=== PATIENT | male | born 1955 | race African-American/Black ===

== ENCOUNTER 2019-02-10 11:54 | Observation (INO) ==
[2019-02-10 13:39] LABS: Apearance,Urine CLEAR (Clear); Bacteria,Urine Occasional /HPF (Few); Bilirubin,Urine Negative (Negative); Blood, Urine Negative (Negative); Glucose,Urine (UA) Negative (Negative); Ketones,Urine Negative (Negative); Mucus,Urine Many /LPF (Occasional); Nitrite,Urine Negative (Negative); Protein,Urine Negative; RBC,Urine 3 /HPF (0-4); Squamous Epithelial Cell,Urine Occasional /HPF (0-10); Urine Color Yellow (Yellow); Urine Specific Gravity 1.026 (1.001-1.035); WBC,Urine 2 /HPF (0-6)
[2019-02-10 14:31] LABS: Barbiturates Screen,Urine Negative (Negative); Benzodiazepines Screen,Urine Negative (Negative); Cannabinoid Screen,Urine Negative (Negative); Opiate Screen,Urine Negative (Negative); Phencyclidine Screen,Urine Negative (Negative)
[2019-02-10 14:45] LABS: Basophils % 0.2 % (0.0-0.8); Eosinophils # 0.1 10*3/uL (0.0-0.87); Eosinophils % 0.7 % (0.00-10.9); Hematocrit 47.4 VOL% (42.0-52.0); Hemoglobin 16.4 GM/DL (14.0-18.0); Immature Granulocytes % 0.6 %; Immature Granulocytes Absolute 0.06 #; Lymphocytes # 2.6 10*3/uL (1.4-4.0); Lymphocytes % 25.8 % (21.2-54.2); Mean Corpuscular HGB Conc 34.6 GM/DL (32-36); Mean Corpuscular Hemoglobin 34 PG (27-34); Mean Corpuscular Volume 97.3 FL (87-102); Mean Platelet Volume 10.2 FL (9.6-12.0); Monocytes # 0.9 10*3/uL (0.11-0.8); Monocytes % 8.6 % (1.7-12.7); Neutrophils # 6.4 10*3/uL (1.4-7.4); Neutrophils % 64.1 % (38.7-73.9); Platelet Count 285 T/CUMM (130-400); Red Blood Count 4.87 MC/CUMM (3.8-5.5); Red Cell Distribution Width 12.6 % (9.3-17.3)
[2019-02-10 15:07] LABS: Albumin 3.6 G/DL (3.4-5.0); Bilirubin,Total 0.7 MG/DL (0.2-1.0); Calcium 8.9 MG/DL (8.5-10.1); Osmolality,Calculated 274.8 MOS/KG (273-304); Potassium 4.4 MMOL/L (3.5-5.1); Total Protein 8.3 G/DL (6.4-8.3)
[2019-02-10] MEDS ORDERED: SODIUM CHLORIDE 0.9% 1,000 ML IV STA (15:29)
[2019-02-10] MEDS ORDERED: cloNIDine 0.1 MG TABLET PO PRN (16:57)
[2019-02-10] MEDS ORDERED: ONDANSETRON 4 MG/2 ML VIAL IV PRN (17:05)
[2019-02-10] MEDS ORDERED: LABETALOL 20 MG/4 ML SYRINGE IV PRN (17:08)
[2019-02-10 17:30] LABS: Risk Ratio 2.98; VLDL CHOLESTEROL 13.8 MG/DL
[2019-02-10] MEDS: SODIUM CHLORIDE 0.9% 1,000 ML IV SCH (18:29)
[2019-02-10] MEDS: ACETAMINOPHEN 500 MG TABLET PO SCH (18:29)
[2019-02-10] MEDS ORDERED: ROSUVASTATIN 20 MG TABLET PO SCH (21:00)
[2019-02-10] MEDS ORDERED: ENOXAPARIN 40 MG/0.4 ML SYRINGE SUBCUT SCH (21:00)
[2019-02-10] MEDS: CARVEDILOL 12.5 MG TABLET PO SCH (22:16)
[2019-02-11 03:42] LABS: Basophils % 0.1 % (0.0-0.8); Eosinophils # 0.2 10*3/uL (0.0-0.87); Eosinophils % 2.5 % (0.00-10.9); Hematocrit 40.4 VOL% (42.0-52.0); Hemoglobin 13.8 GM/DL (14.0-18.0); Immature Granulocytes % 0.2 %; Immature Granulocytes Absolute 0.02 #; Lymphocytes # 3.1 10*3/uL (1.4-4.0); Lymphocytes % 37.9 % (21.2-54.2); Mean Corpuscular HGB Conc 34.2 GM/DL (32-36); Mean Corpuscular Hemoglobin 33 PG (27-34); Mean Corpuscular Volume 97.6 FL (87-102); Mean Platelet Volume 10.4 FL (9.6-12.0); Monocytes # 0.9 10*3/uL (0.11-0.8); Neutrophils % 48.3 % (38.7-73.9); Platelet Count 218 T/CUMM (130-400); Red Blood Count 4.14 MC/CUMM (3.8-5.5); Red Cell Distribution Width 12.7 % (9.3-17.3); White Blood Count 8.3 T/CUMM (4-12)
[2019-02-11 03:57] LABS: Calcium 8.4 MG/DL (8.5-10.1); Osmolality,Calculated 278.5 MOS/KG (273-304); Potassium 4.4 MMOL/L (3.5-5.1)
[2019-02-11] MEDS: ACETAMINOPHEN 500 MG TABLET PO SCH (08:36)
[2019-02-11] MEDS: CARVEDILOL 12.5 MG TABLET PO SCH (08:36)
[2019-02-11] MEDS ORDERED: VENLAFAXINE XR 75 MG CAPSULE PO SCH (09:00)
[2019-02-11] MEDS ORDERED: ASPIRIN EC 81 MG TABLET PO SCH (09:00)
[2019-02-11] MEDS ORDERED: CLOPIDOGREL 75 MG TABLET PO SCH (09:00)
[2019-02-11 12:05] VITALS: BP 96/68
[2019-02-11] MEDS: SODIUM CHLORIDE 0.9% 1,000 ML IV SCH (13:06)
== END 2019-02-11 13:40 ==
LOC: N.ED 11:54 → INTOOBSV 17:05 → N.EDINP 17:05 → N.2E 18:10
PROVIDERS: ADMIT Hospitalist; ATTEND Hospitalist

== ENCOUNTER 2020-12-12 19:22 | Inpatient (IN) ==
[2020-12-12 20:01] LABS: Albumin 3.3 G/DL (3.4-5.0); Calcium 9.5 MG/DL (8.5-10.1); Osmolality,Calculated 278.8 MOS/KG (273-304); Potassium 4.3 MMOL/L (3.5-5.1); Total Protein 8.9 G/DL (6.4-8.3)
[2020-12-12] MEDS ORDERED: LEVOFLOXACIN INJ 500 MG in PREMIX 1 EACH IV STA (20:18)
[2020-12-12] MEDS ORDERED: SODIUM CHLORIDE 0.9% 1,000 ML IV STA (20:18)
[2020-12-12 20:31] LABS: Basophils % 0.2 % (0.0-0.8); Hematocrit 43.9 VOL% (42.0-52.0); Hemoglobin 15.2 GM/DL (14.0-18.0); Immature Granulocytes % 0.6 %; Immature Granulocytes Absolute 0.08 #; Lymphocytes % 7.4 % (21.2-54.2); Mean Corpuscular HGB Conc 34.6 GM/DL (32-36); Mean Corpuscular Volume 100.5 FL (87-102); Mean Platelet Volume 10.5 FL (9.6-12.0); Monocytes % 5.3 % (1.7-12.7); Neutrophils % 86.5 % (38.7-73.9); Platelet Count 288 T/CUMM (130-400); Red Blood Count 4.37 MC/CUMM (3.8-5.5); Red Cell Distribution Width 13.4 % (9.3-17.3)
[2020-12-12 20:56] LABS: Bilirubin,Urine Negative (Negative); Blood, Urine Negative (Negative); Glucose,Urine (UA) Negative (Negative); Ketones,Urine Negative (Negative); Mucus,Urine Few /LPF (Occasional); Nitrite,Urine Negative (Negative); Protein,Urine 30 MG/DL; RBC,Urine 3 /HPF (0-4); Urine Appearance CLEAR (Clear); Urine Color Amber (Yellow); Urine Specific Gravity 1.027 (1.001-1.035); WBC,Urine 4 /HPF (0-6)
[2020-12-12] MEDS ORDERED: GLUCAGON 1 MG VIAL IM PRN (22:05)
[2020-12-12] MEDS ORDERED: diphenhydrAMINE CAP 25 MG CAPSULE PO PRN (22:05)
[2020-12-12] MEDS ORDERED: NICOTINE 21 MG/24 HR PATCH TRANSDERM PRN (22:05)
[2020-12-12] MEDS ORDERED: hydrALAZINE 20 MG/1 ML VIAL IV PRN (22:05)
[2020-12-12] MEDS ORDERED: MORPHINE 4 MG/1 ML VIAL IV PRN (22:05)
[2020-12-12] MEDS ORDERED: DEXTROSE 50% 25 GM/50 ML VIAL IV PRN (22:05)
[2020-12-12] MEDS ORDERED: ONDANSETRON 4 MG/2 ML VIAL IV PRN (22:05)
[2020-12-12] MEDS ORDERED: ACETAMINOPHEN 325 MG TABLET PEG PRN (22:05)
[2020-12-12 22:49] LABS: ABG Base Excess -2.9 MMOL/L (-2.5-2.5); ABG Oxygen Saturation 95.5 % (95-100); ABG PCO2 30.2 MM HG (35-48); ABG PH 7.435 (7.35-7.45); ABG PO2 74.6 MM HG (80-95); ABG TCO2 17.8 MMOL/L (23-27); Allen Test Positive; Pt O2 Delivery Device Simple Mask
[2020-12-13] MEDS: DEXTROSE 5% NACL 0.45% 1,000 ML IV SCH ×2 (00:02→18:04)
[2020-12-13] MEDS: ALBUTEROL/IPRATROPIUM 3 ML NEB RESP TX SCH ×4 (01:03→21:04)
[2020-12-13 06:27] LABS: Basophils % 0.1 % (0.0-0.8); Hematocrit 38.4 VOL% (42.0-52.0); Hemoglobin 12.8 GM/DL (14.0-18.0); Immature Granulocytes % 0.7 %; Immature Granulocytes Absolute 0.09 #; Lymphocytes # 1.2 10*3/uL (1.4-4.0); Lymphocytes % 9.6 % (21.2-54.2); Mean Corpuscular HGB Conc 33.3 GM/DL (32-36); Mean Corpuscular Volume 103.8 FL (87-102); Mean Platelet Volume 9.9 FL (9.6-12.0); Monocytes % 4.5 % (1.7-12.7); Neutrophils % 85.1 % (38.7-73.9); Platelet Count 250 T/CUMM (130-400); Red Cell Distribution Width 13.4 % (9.3-17.3); White Blood Count 12.3 T/CUMM (4-12)
[2020-12-13 06:43] LABS: Osmolality,Calculated 282.5 MOS/KG (273-304); Potassium 3.7 MMOL/L (3.5-5.1)
[2020-12-13 07:05] LABS: Band Neutrophils 12 % (0-10); Lymphocytes 12 % (20-55); Metamyelocytes 3 %; Myelocytes 1 %; Segmented Neutrophils 67 % (50-85); Total Cells Counted 100
[2020-12-13 07:06] LABS: Hypochromasia 1+; Platelet Estimate Normal
[2020-12-13 09:19] LABS: ABG Base Excess -0.2 MMOL/L (-2.5-2.5); ABG HCO3 24.3 MMOL/L (20-26); ABG Oxygen Saturation 97.6 % (95-100); ABG PCO2 32.9 MM HG (35-48); ABG PH 7.453 (7.35-7.45); ABG PO2 87.5 MM HG (80-95); ABG TCO2 20.2 MMOL/L (23-27); Allen Test Positive; Pt O2 Delivery Device Simple Mask
[2020-12-13] MEDS: ENOXAPARIN 40 MG/0.4 ML SYRINGE SUBCUT SCH (09:51)
[2020-12-13] MEDS: PANTOPRAZOLE 40 MG TABLET PO SCH (13:37)
[2020-12-13] MEDS: guaiFENesin/DM ER 600-30 MG TABLET PO SCH ×2 (13:37→22:22)
[2020-12-13] MEDS: LEVOFLOXACIN INJ 750 MG in PREMIX 1 EACH IV SCH (22:24)
[2020-12-14] MEDS: ALBUTEROL/IPRATROPIUM 3 ML NEB RESP TX SCH ×4 (01:01→19:33)
[2020-12-14] MEDS ORDERED: SODIUM CHLORIDE 0.9% 500 ML IV SCH (09:30)
[2020-12-14] MEDS: ENOXAPARIN 40 MG/0.4 ML SYRINGE SUBCUT SCH (10:17)
[2020-12-14] MEDS: DEXTROSE 5% NACL 0.45% 1,000 ML IV SCH ×2 (10:21→22:27)
[2020-12-14] MEDS: guaiFENesin/DM ER 600-30 MG TABLET PO SCH ×2 (12:50→22:29)
[2020-12-14] MEDS: PANTOPRAZOLE 40 MG TABLET PO SCH (12:50)
[2020-12-14] MEDS: LEVOFLOXACIN INJ 750 MG in PREMIX 1 EACH IV SCH (22:28)
[2020-12-15] MEDS: ALBUTEROL/IPRATROPIUM 3 ML NEB RESP TX SCH ×3 (02:19→13:17)
[2020-12-15 06:15] LABS: Eosinophils % 0.2 % (0.00-10.9); Hematocrit 34.4 VOL% (42.0-52.0); Hemoglobin 11.6 GM/DL (14.0-18.0); Immature Granulocytes % 0.5 %; Immature Granulocytes Absolute 0.03 #; Lymphocytes % 17.8 % (21.2-54.2); Mean Corpuscular HGB Conc 33.7 GM/DL (32-36); Mean Corpuscular Volume 102.4 FL (87-102); Mean Platelet Volume 9.7 FL (9.6-12.0); Monocytes % 4.9 % (1.7-12.7); Neutrophils % 76.6 % (38.7-73.9); Platelet Count 231 T/CUMM (130-400); Red Blood Count 3.36 MC/CUMM (3.8-5.5); Red Cell Distribution Width 13.2 % (9.3-17.3); White Blood Count 5.5 T/CUMM (4-12)
[2020-12-15 06:40] LABS: Calcium 9.1 MG/DL (8.5-10.1); Osmolality,Calculated 282.3 MOS/KG (273-304); Potassium 3.3 MMOL/L (3.5-5.1)
[2020-12-15] MEDS: ENOXAPARIN 40 MG/0.4 ML SYRINGE SUBCUT SCH (08:11)
[2020-12-15] MEDS: PANTOPRAZOLE 40 MG TABLET PO SCH (08:14)
[2020-12-15] MEDS: guaiFENesin/DM ER 600-30 MG TABLET PO SCH (08:14)
[2020-12-15] MEDS ORDERED: POTASSIUM CHLORIDE 20 MEQ/15 ML UDCUP PER TUBE PRN (11:24)
[2020-12-15 13:39] VITALS: BP 142/90
[2020-12-15] MEDS: DEXTROSE 5% NACL 0.45% 1,000 ML IV SCH (13:49)
== END 2020-12-15 16:05 | DRG 137 ==
LOC: EDUNIT# → EDBD → N.ED 19:22 → SUATTDRO 22:50 → N.EDINP 22:50 → N.3E 22:51
PROVIDERS: ADMIT Internal Medicine; ATTEND Internal Medicine

== ENCOUNTER 2020-12-24 22:40 | Inpatient (IN) ==
[2020-12-24] MEDS ORDERED: ETOMIDATE 20 MG/10 ML VIAL IV ONE (23:10)
[2020-12-24] MEDS ORDERED: VECURONIUM 10 MG VIAL IV ONE (23:10)
[2020-12-24] MEDS ORDERED: methylPREDNISolone SOD SUC 125 MG/2 ML VIAL IV STA (23:18)
[2020-12-24] MEDS ORDERED: PANTOPRAZOLE 40 MG VIAL IV STA (23:18)
[2020-12-24] MEDS ORDERED: SODIUM CHLORIDE 0.9% 1,000 ML IV STA (23:18)
[2020-12-24] MEDS ORDERED: VANCOMYCIN INJ 1,000 MG in SODIUM CHLORIDE 0.9% 250 ML IV STA ×2 (23:18→23:21)
[2020-12-24] MEDS ORDERED: ONDANSETRON 4 MG/2 ML VIAL IV STA (23:18)
[2020-12-24 23:32] LABS: Basophils % 0.2 % (0.0-0.8); Hematocrit 45.5 VOL% (42.0-52.0); Hemoglobin 14.4 GM/DL (14.0-18.0); Immature Granulocytes % 0.4 %; Immature Granulocytes Absolute 0.07 #; Lymphocytes # 2.2 10*3/uL (1.4-4.0); Lymphocytes % 13.2 % (21.2-54.2); Mean Corpuscular HGB Conc 31.6 GM/DL (32-36); Mean Corpuscular Volume 108.9 FL (87-102); Mean Platelet Volume 10.8 FL (9.6-12.0); Monocytes % 3.3 % (1.7-12.7); Neutrophils % 82.9 % (38.7-73.9); Platelet Count 395 T/CUMM (130-400); Red Blood Count 4.18 MC/CUMM (3.8-5.5); Red Cell Distribution Width 13.8 % (9.3-17.3); White Blood Count 16.5 T/CUMM (4-12)
[2020-12-25 00:24] LABS: INR 1.3; PT Patient Result 13.6 SECS (9.8-11.9)
[2020-12-25 00:37] LABS: ABG Base Excess -9.3 MMOL/L (-2.5-2.5); ABG HCO3 17.1 MMOL/L (20-26); ABG Oxygen Saturation 98.4 % (95-100)
[2020-12-25 00:40] LABS: ABG PH 7.057 (7.35-7.45)
[2020-12-25 00:41] LABS: ABG PCO2 87.8 MM HG (35-48)
[2020-12-25 00:59] LABS: Potassium 4.9 MMOL/L (3.5-5.1); Sodium 138 MMOL/L (136-145)
[2020-12-25 01:01] LABS: Calcium 9.5 MG/DL (8.5-10.1)
[2020-12-25 01:03] LABS: Albumin 2.8 G/DL (3.4-5.0); Blood Urea Nitrogen 41 MG/DL (7-18); Carbon Dioxide 23 MMOL/L (21-32); Glucose 107 MG/DL (74-106); Osmolality,Calculated 284.7 MOS/KG (273-304)
[2020-12-25 01:06] LABS: Alanine Aminotransferase 89 U/L (16-61); Aspartate Amino Transferase 47 U/L (0-37); Estimated Glom Filtration Rate 66 ML/MIN
[2020-12-25 01:09] LABS: Alkaline Phosphatase 216 U/L (45-117)
[2020-12-25 01:10] LABS: Troponin I < 0.015 NG/ML (0.00-0.045)
[2020-12-25 01:55] LABS: Blood, Urine Moderate mg/dL (Negative); Glucose,Urine (UA) Negative (Negative); Ketones,Urine Negative (Negative); Mucus,Urine Few /LPF (Occasional); Nitrite,Urine Negative (Negative); Protein,Urine 100 MG/DL; RBC,Urine 11 /HPF (0-4); Squamous Epithelial Cell,Urine Occasional /HPF (0-10); Urine Appearance CLOUDY (Clear); Urine Color Amber (Yellow); Urine Specific Gravity 1.028 (1.001-1.035); WBC,Urine 2 /HPF (0-6)
[2020-12-25 01:57] LABS: Bilirubin,Urine Small mg/dL (Negative)
[2020-12-25] MEDS ORDERED: METOPROLOL TARTRATE 5 MG/5 ML VIAL IV STA (02:10)
[2020-12-25] MEDS ORDERED: DEXTROSE 50% 25 GM/50 ML VIAL IV PRN (02:37)
[2020-12-25] MEDS ORDERED: ONDANSETRON 4 MG/2 ML VIAL IV PRN (02:37)
[2020-12-25] MEDS ORDERED: hydrALAZINE 20 MG/1 ML VIAL IV PRN (02:37)
[2020-12-25] MEDS ORDERED: GLUCAGON 1 MG VIAL IM PRN (02:37)
[2020-12-25 02:48] LABS: ABG Base Excess -7.3 MMOL/L (-2.5-2.5); ABG HCO3 18.6 MMOL/L (20-26); ABG Oxygen Saturation 98.4 % (95-100); ABG PCO2 48.3 MM HG (35-48); ABG PH 7.237 (7.35-7.45); ABG TCO2 18.3 MMOL/L (23-27)
[2020-12-25] MEDS: LEVOFLOXACIN INJ 750 MG in PREMIX 1 EACH IV SCH (03:50)
[2020-12-25] MEDS: SODIUM CHLORIDE 0.9% 1,000 ML IV SCH ×3 (04:35→23:10)
[2020-12-25 05:34] LABS: Basophils % 0.2 % (0.0-0.8); Hematocrit 39.5 VOL% (42.0-52.0); Hemoglobin 12.9 GM/DL (14.0-18.0); Immature Granulocytes % 0.4 %; Immature Granulocytes Absolute 0.05 #; Lymphocytes # 0.5 10*3/uL (1.4-4.0); Lymphocytes % 4.3 % (21.2-54.2); Mean Corpuscular HGB Conc 32.7 GM/DL (32-36); Mean Corpuscular Volume 107.3 FL (87-102); Mean Platelet Volume 10.5 FL (9.6-12.0); Monocytes % 3.9 % (1.7-12.7); Neutrophils % 91.2 % (38.7-73.9); Platelet Count 350 T/CUMM (130-400); Red Blood Count 3.68 MC/CUMM (3.8-5.5); Red Cell Distribution Width 13.6 % (9.3-17.3); White Blood Count 12.2 T/CUMM (4-12)
[2020-12-25 05:44] LABS: Calcium 8.6 MG/DL (8.5-10.1); Osmolality,Calculated 287.5 MOS/KG (273-304)
[2020-12-25 06:04] LABS: Band Neutrophils 9 % (0-10); Lymphocytes 5 % (20-55); Platelet Estimate Adequate; Segmented Neutrophils 84 % (50-85); Total Cells Counted 100
[2020-12-25] MEDS: ALBUTEROL/IPRATROPIUM 3 ML NEB RESP TX SCH ×3 (07:30→19:07)
[2020-12-25] MEDS: PANTOPRAZOLE 40 MG VIAL IV SCH (09:33)
[2020-12-25] MEDS: ENOXAPARIN 40 MG/0.4 ML SYRINGE SUBCUT SCH (09:33)
[2020-12-25] MEDS: VANCOMYCIN INJ 1,000 MG in SODIUM CHLORIDE 0.9% 250 ML IV SCH ×2 (11:42→23:10)
[2020-12-25] MEDS ORDERED: INFLUENZA VIRUS VACCINE 0.5 ML SYRINGE IM ONE (18:35)
[2020-12-25] MEDS ORDERED: LACTATED RINGERS 1,000 ML IV ONE (18:36)
[2020-12-25] MEDS ORDERED: PHENYLEPHRINE DRIP 40 MG/250 ML PREMIX IV ONE (18:39)
[2020-12-25] MEDS: PHENYLEPHRINE DRIP 40 MG/250 ML PREMIX IV PRN (18:44)
[2020-12-25] MEDS: ACETAMINOPHEN 650 MG SUPP RECTAL PRN (18:52)
[2020-12-25] MEDS ORDERED: DILTIAZEM 50 MG/10 ML VIAL IV ONE (19:47)
[2020-12-25] MEDS ORDERED: DILTIAZEM 25 MG/5 ML VIAL IV ONE (19:49)
[2020-12-25] MEDS ORDERED: dilTIAZem INJ 125 MG in SODIUM CHLORIDE 0.9% 125 MG/100 ML BAG IV SCH (20:00)
[2020-12-25 20:20] LABS: Calcium 8.4 MG/DL (8.5-10.1); Osmolality,Calculated 290.4 MOS/KG (273-304); Potassium 4.6 MMOL/L (3.5-5.1)
[2020-12-25] MEDS ORDERED: NOREPINEPHRINE 4 MG/4 ML VIAL IV ONE (20:41)
[2020-12-25] MEDS: NOREPINEPHRINE 8 MG in SODIUM CHLORIDE 0.9% 242 ML IV PRN (20:45)
[2020-12-25] MEDS ORDERED: SODIUM CHLORIDE 0.9% 500 ML IV ONE ×2 (21:00→21:52)
[2020-12-25 21:30] LABS: ABG Base Excess -3.1 MMOL/L (-2.5-2.5); ABG HCO3 21.8 MMOL/L (20-26); ABG PCO2 33.6 MM HG (35-48); ABG PH 7.402 (7.35-7.45); ABG TCO2 18.7 MMOL/L (23-27)
[2020-12-26] MEDS: ALBUTEROL/IPRATROPIUM 3 ML NEB RESP TX SCH ×4 (01:25→19:45)
[2020-12-26 03:27] LABS: Basophils # 0.1 10*3/uL (0.0-0.2); Basophils % 0.2 % (0.0-0.8); Hematocrit 33.9 VOL% (42.0-52.0); Hemoglobin 11.1 GM/DL (14.0-18.0); Immature Granulocytes % 0.3 %; Immature Granulocytes Absolute 0.07 #; Lymphocytes % 4.4 % (21.2-54.2); Mean Corpuscular HGB Conc 32.7 GM/DL (32-36); Mean Corpuscular Volume 105.9 FL (87-102); Mean Platelet Volume 10.4 FL (9.6-12.0); Monocytes % 2.8 % (1.7-12.7); Neutrophils % 92.3 % (38.7-73.9); Platelet Count 282 T/CUMM (130-400); Red Cell Distribution Width 14.3 % (9.3-17.3); White Blood Count 22.4 T/CUMM (4-12)
[2020-12-26] MEDS: PHENYLEPHRINE DRIP 40 MG/250 ML PREMIX IV PRN ×3 (03:40→20:02)
[2020-12-26] MEDS: LEVOFLOXACIN INJ 750 MG in PREMIX 1 EACH IV SCH (03:41)
[2020-12-26 03:48] LABS: Calcium 8.1 MG/DL (8.5-10.1); Potassium 4.2 MMOL/L (3.5-5.1)
[2020-12-26 03:51] LABS: Macrocytosis Slight; Platelet Estimate Normal
[2020-12-26 04:39] LABS: ABG Base Excess -4.1 MMOL/L (-2.5-2.5); ABG HCO3 20.2 MMOL/L (20-26); ABG Oxygen Saturation 99.2 % (95-100); ABG PCO2 34.5 MM HG (35-48); ABG PH 7.386 (7.35-7.45); ABG PO2 289.9 MM HG (80-95); ABG TCO2 21.3 MMOL/L (23-27); Allen Test Positive; Pt O2 Delivery Device Ventilator
[2020-12-26] MEDS: DILTIAZEM IV SCH ×2 (05:28→16:00)
[2020-12-26] MEDS: ACETAMINOPHEN 650 MG SUPP RECTAL PRN ×2 (06:19→12:36)
[2020-12-26] MEDS: CLINDAMYCIN INJ 600 MG in PREMIX 1 EACH IV SCH ×2 (08:24→16:07)
[2020-12-26] MEDS: ENOXAPARIN 40 MG/0.4 ML SYRINGE SUBCUT SCH (08:42)
[2020-12-26] MEDS: PANTOPRAZOLE 40 MG VIAL IV SCH (08:56)
[2020-12-26] MEDS: SODIUM CHLORIDE 0.9% 1,000 ML IV SCH ×2 (08:58→18:35)
[2020-12-26] MEDS: VANCOMYCIN INJ 1,000 MG in SODIUM CHLORIDE 0.9% 250 ML IV SCH ×2 (12:03→23:26)
[2020-12-26] MEDS: carvediloL 12.5 MG TABLET PO SCH (22:35)
[2020-12-26] MEDS ORDERED: IBUPROFEN 100 MG/5 ML UDCUP PO ONE (22:56)
[2020-12-27] MEDS: CLINDAMYCIN INJ 600 MG in PREMIX 1 EACH IV SCH ×3 (00:28→17:40)
[2020-12-27] MEDS: ALBUTEROL/IPRATROPIUM 3 ML NEB RESP TX SCH ×4 (00:45→19:30)
[2020-12-27] MEDS ORDERED: NOREPINEPHRINE 4 MG/4 ML VIAL IV ONE (00:49)
[2020-12-27] MEDS: NOREPINEPHRINE 8 MG in SODIUM CHLORIDE 0.9% 242 ML IV PRN (00:50)
[2020-12-27 01:06] LABS: Basophils % 0.2 % (0.0-0.8); Eosinophils % 0.1 % (0.00-10.9); Hematocrit 29.2 VOL% (42.0-52.0); Hemoglobin 9.7 GM/DL (14.0-18.0); Immature Granulocytes % 0.4 %; Immature Granulocytes Absolute 0.07 #; Lymphocytes % 6.1 % (21.2-54.2); Mean Corpuscular HGB Conc 33.2 GM/DL (32-36); Mean Corpuscular Volume 106.2 FL (87-102); Mean Platelet Volume 10.4 FL (9.6-12.0); Neutrophils % 90.2 % (38.7-73.9); Platelet Count 243 T/CUMM (130-400); Red Blood Count 2.75 MC/CUMM (3.8-5.5); Red Cell Distribution Width 14.6 % (9.3-17.3); White Blood Count 16.8 T/CUMM (4-12)
[2020-12-27 01:22] LABS: Calcium 8.2 MG/DL (8.5-10.1); Osmolality,Calculated 292.6 MOS/KG (273-304); Potassium 3.3 MMOL/L (3.5-5.1)
[2020-12-27 01:42] LABS: Band Neutrophils 8 % (0-10); Lymphocytes 6 % (20-55); Metamyelocytes 2 %; Segmented Neutrophils 81 % (50-85); Total Cells Counted 100
[2020-12-27 01:44] LABS: Hypochromasia 1+; Platelet Estimate Normal; Polychromasia Few
[2020-12-27] MEDS: PHENYLEPHRINE DRIP 40 MG/250 ML PREMIX IV PRN (02:12)
[2020-12-27] MEDS: DILTIAZEM IV SCH ×3 (03:07→22:53)
[2020-12-27] MEDS: ZINC OXIDE PASTE 113 GM TUBE TOP SCH ×3 (03:08→20:35)
[2020-12-27 03:11] LABS: ABG Base Excess -1.7 MMOL/L (-2.5-2.5); ABG Oxygen Saturation 96.3 % (95-100); ABG PCO2 38.2 MM HG (35-48); ABG PH 7.388 (7.35-7.45); ABG PO2 76.7 MM HG (80-95)
[2020-12-27] MEDS: SODIUM CHLORIDE 0.9% 1,000 ML IV SCH ×2 (04:37→14:41)
[2020-12-27] MEDS: POTASSIUM CHLORIDE RIDER 10 MEQ in PREMIX 1 EACH IV PRN ×4 (05:06→19:50)
[2020-12-27] MEDS: PHENYLEPHRINE INJ 160 MG in SODIUM CHLORIDE 0.9% 234 ML IV PRN (05:19)
[2020-12-27] MEDS: ENOXAPARIN 40 MG/0.4 ML SYRINGE SUBCUT SCH (09:50)
[2020-12-27] MEDS: PANTOPRAZOLE 40 MG VIAL IV SCH (09:50)
[2020-12-27] MEDS: carvediloL 12.5 MG TABLET PO SCH ×2 (10:00→20:35)
[2020-12-27] MEDS: CLOPIDOGREL 75 MG TABLET PO SCH (11:46)
[2020-12-27] MEDS: LEVOFLOXACIN INJ 750 MG in PREMIX 1 EACH IV SCH (11:46)
[2020-12-27] MEDS: VANCOMYCIN INJ 1,000 MG in SODIUM CHLORIDE 0.9% 250 ML IV SCH (14:50)
[2020-12-27] MEDS ORDERED: IBUPROFEN 800 MG TABLET PO ONE (22:47)
[2020-12-28] MEDS: ALBUTEROL/IPRATROPIUM 3 ML NEB RESP TX SCH ×4 (00:24→19:25)
[2020-12-28] MEDS: SODIUM CHLORIDE 0.9% 1,000 ML IV SCH ×3 (01:21→21:53)
[2020-12-28] MEDS: CLINDAMYCIN INJ 600 MG in PREMIX 1 EACH IV SCH ×2 (01:21→09:55)
[2020-12-28] MEDS: PHENYLEPHRINE INJ 160 MG in SODIUM CHLORIDE 0.9% 234 ML IV PRN (01:33)
[2020-12-28] MEDS: DILTIAZEM IV SCH ×2 (03:01→11:50)
[2020-12-28 03:22] LABS: ABG Base Excess -2.2 MMOL/L (-2.5-2.5); ABG HCO3 21.3 MMOL/L (20-26); ABG Oxygen Saturation 98.4 % (95-100); ABG PCO2 31.9 MM HG (35-48); ABG PH 7.442 (7.35-7.45); ABG PO2 159.4 MM HG (80-95); ABG TCO2 22.3 MMOL/L (23-27)
[2020-12-28 04:16] LABS: Basophils % 0.3 % (0.0-0.8); Eosinophils % 0.3 % (0.00-10.9); Hematocrit 28.2 VOL% (42.0-52.0); Hemoglobin 9.5 GM/DL (14.0-18.0); Immature Granulocytes % 1.1 %; Lymphocytes # 0.8 10*3/uL (1.4-4.0); Mean Corpuscular HGB Conc 33.7 GM/DL (32-36); Mean Corpuscular Volume 102.9 FL (87-102); Mean Platelet Volume 11.1 FL (9.6-12.0); Monocytes % 6.1 % (1.7-12.7); Neutrophils % 83.2 % (38.7-73.9); Platelet Count 207 T/CUMM (130-400); Red Blood Count 2.74 MC/CUMM (3.8-5.5); Red Cell Distribution Width 14.7 % (9.3-17.3); White Blood Count 9.3 T/CUMM (4-12)
[2020-12-28 04:31] LABS: Calcium 8.4 MG/DL (8.5-10.1); Osmolality,Calculated 293.4 MOS/KG (273-304); Potassium 3.1 MMOL/L (3.5-5.1)
[2020-12-28] MEDS: VANCOMYCIN INJ 1,000 MG in SODIUM CHLORIDE 0.9% 250 ML IV SCH (04:31)
[2020-12-28 04:36] LABS: Band Neutrophils 1 % (0-10); Eosinophils 1 % (0-10); Hypochromasia Slight; Lymphocytes 5 % (20-55); Macrocytosis Slight; Platelet Estimate Normal; Segmented Neutrophils 90 % (50-85); Total Cells Counted 100
[2020-12-28] MEDS: POTASSIUM CHLORIDE RIDER 20 MEQ in PREMIX 1 EACH IV PRN ×6 (06:07→23:47)
[2020-12-28] MEDS: LEVOFLOXACIN INJ 750 MG in PREMIX 1 EACH IV SCH (09:56)
[2020-12-28] MEDS: carvediloL 12.5 MG TABLET PO SCH ×2 (10:05→21:53)
[2020-12-28] MEDS: CLOPIDOGREL 75 MG TABLET PO SCH (10:05)
[2020-12-28] MEDS: ZINC OXIDE PASTE 113 GM TUBE TOP SCH ×2 (10:05→21:53)
[2020-12-28] MEDS: ENOXAPARIN 40 MG/0.4 ML SYRINGE SUBCUT SCH (10:06)
[2020-12-28] MEDS: PANTOPRAZOLE 40 MG VIAL IV SCH (10:08)
[2020-12-28] MEDS: MEROPENEM 500 MG in SODIUM CHLORIDE 0.9% 100 ML IV SCH ×3 (10:08→21:53)
[2020-12-29] MEDS: ALBUTEROL/IPRATROPIUM 3 ML NEB RESP TX SCH ×4 (01:40→19:47)
[2020-12-29] MEDS: ACETAMINOPHEN 325 MG/10.15 ML UDCUP PO PRN ×3 (02:15→18:38)
[2020-12-29] MEDS: DILTIAZEM IV SCH ×2 (02:24→10:03)
[2020-12-29 04:19] LABS: ABG Base Excess -3.1 MMOL/L (-2.5-2.5); ABG HCO3 20.7 MMOL/L (20-26); ABG Oxygen Saturation 98.5 % (95-100); ABG PCO2 32.1 MM HG (35-48); ABG PH 7.427 (7.35-7.45); ABG PO2 173.5 MM HG (80-95); ABG TCO2 21.7 MMOL/L (23-27)
[2020-12-29 04:53] LABS: Eosinophils # 0.1 10*3/uL (0.0-0.87); Eosinophils % 1.2 % (0.00-10.9); Hematocrit 25.7 VOL% (42.0-52.0); Hemoglobin 8.2 GM/DL (14.0-18.0); Immature Granulocytes % 0.8 %; Immature Granulocytes Absolute 0.05 #; Lymphocytes % 15.7 % (21.2-54.2); Mean Corpuscular HGB Conc 31.9 GM/DL (32-36); Mean Corpuscular Volume 105.8 FL (87-102); Mean Platelet Volume 10.9 FL (9.6-12.0); Monocytes % 10.1 % (1.7-12.7); Neutrophils % 72.2 % (38.7-73.9); Platelet Count 179 T/CUMM (130-400); Red Blood Count 2.43 MC/CUMM (3.8-5.5); White Blood Count 6.1 T/CUMM (4-12)
[2020-12-29 05:13] LABS: Albumin 1.4 G/DL (3.4-5.0); Calcium 7.6 MG/DL (8.5-10.1); Potassium 3.4 MMOL/L (3.5-5.1); Total Protein 5.5 G/DL (6.4-8.3)
[2020-12-29 05:17] LABS: Hypochromasia 1+; Lymphocytes 14 % (20-55); Microcytosis 1+; Platelet Estimate Adequate; Segmented Neutrophils 74 % (50-85); Total Cells Counted 100
[2020-12-29] MEDS: POTASSIUM CHLORIDE RIDER 20 MEQ in PREMIX 1 EACH IV PRN (05:26)
[2020-12-29] MEDS: MEROPENEM 500 MG in SODIUM CHLORIDE 0.9% 100 ML IV SCH ×4 (05:26→21:18)
[2020-12-29] MEDS: POTASSIUM CHLORIDE RIDER 10 MEQ in PREMIX 1 EACH IV PRN (06:39)
[2020-12-29] MEDS: CLOPIDOGREL 75 MG TABLET PO SCH (08:15)
[2020-12-29] MEDS: carvediloL 12.5 MG TABLET PO SCH ×2 (08:15→20:14)
[2020-12-29] MEDS: SODIUM CHLORIDE 0.9% 1,000 ML IV SCH (08:15)
[2020-12-29] MEDS: PANTOPRAZOLE 40 MG VIAL IV SCH (08:16)
[2020-12-29] MEDS: ENOXAPARIN 40 MG/0.4 ML SYRINGE SUBCUT SCH (08:16)
[2020-12-29] MEDS: ZINC OXIDE PASTE 113 GM TUBE TOP SCH ×2 (08:17→20:28)
[2020-12-29] MEDS: DILTIAZEM 30 MG TABLET PO SCH ×2 (15:49→20:14)
[2020-12-30] MEDS: ALBUTEROL/IPRATROPIUM 3 ML NEB RESP TX SCH ×4 (01:55→19:16)
[2020-12-30] MEDS: ACETAMINOPHEN 325 MG/10.15 ML UDCUP PO PRN ×2 (02:35→19:26)
[2020-12-30 04:20] LABS: Allen Test Positive; Pt O2 Delivery Device Ventilator
[2020-12-30] MEDS: MEROPENEM 500 MG in SODIUM CHLORIDE 0.9% 100 ML IV SCH ×4 (04:20→21:17)
[2020-12-30 04:21] LABS: ABG Base Excess 0.5 MMOL/L (-2.5-2.5); ABG HCO3 24.9 MMOL/L (20-26); ABG Oxygen Saturation 99.4 % (95-100); ABG PCO2 32.5 MM HG (35-48); ABG TCO2 21.7 MMOL/L (23-27)
[2020-12-30] MEDS ORDERED: KETOROLAC 15 MG/1 ML VIAL IV ONE (04:46)
[2020-12-30] MEDS: DILTIAZEM IV SCH (04:53)
[2020-12-30 07:41] LABS: Basophils % 0.1 % (0.0-0.8); Eosinophils # 0.1 10*3/uL (0.0-0.87); Eosinophils % 0.8 % (0.00-10.9); Hematocrit 25.7 VOL% (42.0-52.0); Hemoglobin 8.5 GM/DL (14.0-18.0); Immature Granulocytes % 1.4 %; Immature Granulocytes Absolute 0.16 #; Lymphocytes # 1.4 10*3/uL (1.4-4.0); Lymphocytes % 12.2 % (21.2-54.2); Mean Corpuscular HGB Conc 33.1 GM/DL (32-36); Mean Corpuscular Volume 104.5 FL (87-102); Mean Platelet Volume 11.6 FL (9.6-12.0); Neutrophils % 77.5 % (38.7-73.9); Platelet Count 173 T/CUMM (130-400); Red Blood Count 2.46 MC/CUMM (3.8-5.5); Red Cell Distribution Width 15.1 % (9.3-17.3); White Blood Count 11.2 T/CUMM (4-12)
[2020-12-30] MEDS ORDERED: MAGNESIUM SULF RIDER 2 GM in PREMIX 1 EACH IV PRN (07:55)
[2020-12-30 08:00] LABS: Hypochromasia 1+; Lymphocytes 11 % (20-55); Microcytosis 1+; Platelet Estimate Adequate; Segmented Neutrophils 83 % (50-85); Total Cells Counted 100
[2020-12-30 08:08] LABS: ABG Base Excess 0.1 MMOL/L (-2.5-2.5); ABG HCO3 23.3 MMOL/L (20-26); ABG Oxygen Saturation 98.8 % (95-100); ABG PCO2 33.2 MM HG (35-48); ABG PH 7.465 (7.35-7.45); ABG TCO2 24.4 MMOL/L (23-27); Allen Test Positive; Pt O2 Delivery Device Ventilator
[2020-12-30 08:40] LABS: Albumin 1.5 G/DL (3.4-5.0); Bilirubin,Total 0.6 MG/DL (0.2-1.0); Calcium 7.8 MG/DL (8.5-10.1); Osmolality,Calculated 286.8 MOS/KG (273-304); Potassium 3.1 MMOL/L (3.5-5.1); Total Protein 5.8 G/DL (6.4-8.3)
[2020-12-30] MEDS: DILTIAZEM 30 MG TABLET PO SCH ×3 (08:45→21:17)
[2020-12-30] MEDS: CLOPIDOGREL 75 MG TABLET PO SCH (08:45)
[2020-12-30] MEDS: carvediloL 12.5 MG TABLET PO SCH ×2 (08:45→21:17)
[2020-12-30] MEDS: PANTOPRAZOLE 40 MG VIAL IV SCH (08:45)
[2020-12-30] MEDS: ENOXAPARIN 40 MG/0.4 ML SYRINGE SUBCUT SCH (08:45)
[2020-12-30] MEDS: ZINC OXIDE PASTE 113 GM TUBE TOP SCH ×2 (08:46→21:31)
[2020-12-30] MEDS ORDERED: POTASSIUM PHOSPHATE 40 MMOL in SODIUM CHLORIDE 0.9% 250 ML IV ONE (11:00)
[2020-12-31] MEDS: ALBUTEROL/IPRATROPIUM 3 ML NEB RESP TX SCH ×4 (00:25→19:17)
[2020-12-31] MEDS: DILTIAZEM IV SCH (02:34)
[2020-12-31] MEDS: MEROPENEM 500 MG in SODIUM CHLORIDE 0.9% 100 ML IV SCH ×4 (04:07→21:29)
[2020-12-31] MEDS: ACETAMINOPHEN 325 MG/10.15 ML UDCUP PO PRN ×2 (04:08→23:54)
[2020-12-31 04:40] LABS: Allen Test Positive; Pt O2 Delivery Device Ventilator
[2020-12-31 04:44] LABS: ABG Base Excess 1.8 MMOL/L (-2.5-2.5); ABG Oxygen Saturation 99.7 % (95-100); ABG PCO2 34.6 MM HG (35-48); ABG TCO2 22.7 MMOL/L (23-27)
[2020-12-31 05:52] LABS: Basophils % 0.2 % (0.0-0.8); Eosinophils # 0.1 10*3/uL (0.0-0.87); Eosinophils % 1.1 % (0.00-10.9); Hematocrit 26.5 VOL% (42.0-52.0); Hemoglobin 9.3 GM/DL (14.0-18.0); Immature Granulocytes % 1.3 %; Immature Granulocytes Absolute 0.17 #; Lymphocytes # 1.7 10*3/uL (1.4-4.0); Lymphocytes % 13.3 % (21.2-54.2); Mean Corpuscular HGB Conc 35.1 GM/DL (32-36); Mean Corpuscular Volume 100.4 FL (87-102); Mean Platelet Volume 10.8 FL (9.6-12.0); Monocytes % 6.8 % (1.7-12.7); Neutrophils % 77.3 % (38.7-73.9); Platelet Count 157 T/CUMM (130-400); Red Blood Count 2.64 MC/CUMM (3.8-5.5); Red Cell Distribution Width 14.6 % (9.3-17.3); White Blood Count 12.7 T/CUMM (4-12)
[2020-12-31 06:23] LABS: Calcium 7.8 MG/DL (8.5-10.1); Osmolality,Calculated 278.4 MOS/KG (273-304); Potassium 3.2 MMOL/L (3.5-5.1)
[2020-12-31] MEDS: POTASSIUM CHLORIDE RIDER 20 MEQ in PREMIX 1 EACH IV PRN (06:38)
[2020-12-31] MEDS: POTASSIUM CHLORIDE 20 MEQ TABLET PO SCH ×2 (09:30→13:30)
[2020-12-31] MEDS: carvediloL 12.5 MG TABLET PO SCH ×2 (09:30→21:29)
[2020-12-31] MEDS: ENOXAPARIN 40 MG/0.4 ML SYRINGE SUBCUT SCH (09:30)
[2020-12-31] MEDS: CLOPIDOGREL 75 MG TABLET PO SCH (09:30)
[2020-12-31] MEDS: DILTIAZEM 30 MG TABLET PO SCH ×3 (09:30→21:29)
[2020-12-31] MEDS: ZINC OXIDE PASTE 113 GM TUBE TOP SCH ×2 (09:30→21:29)
[2020-12-31] MEDS: PANTOPRAZOLE 40 MG VIAL IV SCH (09:35)
[2020-12-31 17:52] LABS: Calcium 7.6 MG/DL (8.5-10.1); Osmolality,Calculated 279.4 MOS/KG (273-304); Potassium 3.6 MMOL/L (3.5-5.1)
[2021-01-01] MEDS: ALBUTEROL/IPRATROPIUM 3 ML NEB RESP TX SCH ×4 (00:37→18:14)
[2021-01-01 03:13] LABS: ABG Base Excess 2.7 MMOL/L (-2.5-2.5); ABG HCO3 26.8 MMOL/L (20-26); ABG Oxygen Saturation 99.9 % (95-100); ABG PCO2 34.2 MM HG (35-48); ABG PH 7.489 (7.35-7.45); ABG TCO2 24.4 MMOL/L (23-27)
[2021-01-01] MEDS: DILTIAZEM IV SCH (03:14)
[2021-01-01 03:19] LABS: Basophils % 0.1 % (0.0-0.8)
[2021-01-01 03:23] LABS: Eosinophils # 0.1 10*3/uL (0.0-0.87); Eosinophils % 0.5 % (0.00-10.9); Hematocrit 22.2 VOL% (42.0-52.0); Immature Granulocytes % 0.9 %; Immature Granulocytes Absolute 0.11 #; Lymphocytes # 1.6 10*3/uL (1.4-4.0); Lymphocytes % 13.3 % (21.2-54.2); Mean Corpuscular HGB Conc 32.9 GM/DL (32-36); Mean Corpuscular Volume 103.3 FL (87-102); Mean Platelet Volume 11.2 FL (9.6-12.0); Monocytes % 5.4 % (1.7-12.7); Neutrophils % 79.8 % (38.7-73.9); Red Blood Count 2.15 MC/CUMM (3.8-5.5); White Blood Count 11.9 T/CUMM (4-12)
[2021-01-01 03:26] LABS: Hemoglobin 7.3 GM/DL (14.0-18.0)
[2021-01-01 03:27] LABS: Platelet Count 202 T/CUMM (130-400)
[2021-01-01 03:42] LABS: Calcium 7.7 MG/DL (8.5-10.1); Osmolality,Calculated 279.4 MOS/KG (273-304); Potassium 3.4 MMOL/L (3.5-5.1)
[2021-01-01] MEDS: MEROPENEM 500 MG in SODIUM CHLORIDE 0.9% 100 ML IV SCH ×4 (04:50→22:33)
[2021-01-01] MEDS: ZINC OXIDE PASTE 113 GM TUBE TOP SCH ×2 (08:42→21:12)
[2021-01-01] MEDS: PANTOPRAZOLE 40 MG VIAL IV SCH (09:47)
[2021-01-01] MEDS: carvediloL 12.5 MG TABLET PO SCH ×2 (09:47→21:12)
[2021-01-01] MEDS: ENOXAPARIN 40 MG/0.4 ML SYRINGE SUBCUT SCH (09:47)
[2021-01-01] MEDS: CLOPIDOGREL 75 MG TABLET PO SCH (09:47)
[2021-01-01] MEDS: DILTIAZEM 30 MG TABLET PO SCH ×3 (09:47→21:12)
[2021-01-01] MEDS: GENTAMICIN INJ 400 MG in SODIUM CHLORIDE 0.9% 100 ML IV SCH (11:00)
[2021-01-01] MEDS ORDERED: POTASSIUM PHOSPHATE 15 MMOL in SODIUM CHLORIDE 0.9% 100 ML IV ONE (11:00)
[2021-01-02] MEDS: ALBUTEROL/IPRATROPIUM 3 ML NEB RESP TX SCH ×4 (01:49→19:29)
[2021-01-02] MEDS: DILTIAZEM IV SCH (02:51)
[2021-01-02 03:39] LABS: ABG Base Excess 4.4 MMOL/L (-2.5-2.5); ABG HCO3 28.4 MMOL/L (20-26); ABG Oxygen Saturation 99.9 % (95-100); ABG PCO2 35.8 MM HG (35-48); ABG PH 7.497 (7.35-7.45); ABG TCO2 25.2 MMOL/L (23-27)
[2021-01-02] MEDS: MEROPENEM 500 MG in SODIUM CHLORIDE 0.9% 100 ML IV SCH ×4 (03:57→21:41)
[2021-01-02 06:40] LABS: Basophils % 0.2 % (0.0-0.8); Eosinophils # 0.1 10*3/uL (0.0-0.87); Eosinophils % 0.5 % (0.00-10.9); Hematocrit 20.4 VOL% (42.0-52.0); Immature Granulocytes % 1.4 %; Immature Granulocytes Absolute 0.14 #; Lymphocytes # 1.6 10*3/uL (1.4-4.0); Mean Corpuscular HGB Conc 34.3 GM/DL (32-36); Mean Platelet Volume 10.9 FL (9.6-12.0); Monocytes % 5.4 % (1.7-12.7); Neutrophils % 76.5 % (38.7-73.9); Platelet Count 209 T/CUMM (130-400); Red Blood Count 2.02 MC/CUMM (3.8-5.5); Red Cell Distribution Width 14.8 % (9.3-17.3)
[2021-01-02 06:52] LABS: Calcium 7.8 MG/DL (8.5-10.1); Osmolality,Calculated 279.4 MOS/KG (273-304); Potassium 3.3 MMOL/L (3.5-5.1)
[2021-01-02] MEDS: POTASSIUM CHLORIDE RIDER 10 MEQ in PREMIX 1 EACH IV PRN ×4 (07:03→10:34)
[2021-01-02] MEDS: DILTIAZEM 30 MG TABLET PO SCH ×3 (08:54→21:40)
[2021-01-02] MEDS: ENOXAPARIN 40 MG/0.4 ML SYRINGE SUBCUT SCH (08:55)
[2021-01-02] MEDS: carvediloL 12.5 MG TABLET PO SCH ×2 (08:55→21:40)
[2021-01-02] MEDS: ZINC OXIDE PASTE 113 GM TUBE TOP SCH ×2 (08:55→21:41)
[2021-01-02] MEDS: CLOPIDOGREL 75 MG TABLET PO SCH (09:00)
[2021-01-02] MEDS: PANTOPRAZOLE 40 MG VIAL IV SCH (09:00)
[2021-01-02] MEDS: GENTAMICIN INJ 400 MG in SODIUM CHLORIDE 0.9% 100 ML IV SCH (11:50)
[2021-01-02 13:45] LABS: Folate 5.7 NG/ML (5.38-24.0)
[2021-01-02] MEDS: ACETAMINOPHEN 325 MG/10.15 ML UDCUP PO PRN (21:40)
[2021-01-03] MEDS: ALBUTEROL/IPRATROPIUM 3 ML NEB RESP TX SCH ×4 (00:26→19:16)
[2021-01-03] MEDS: DILTIAZEM IV SCH (04:17)
[2021-01-03 04:32] LABS: ABG Base Excess 4.9 MMOL/L (-2.5-2.5); ABG HCO3 28.9 MMOL/L (20-26); ABG PCO2 35.9 MM HG (35-48); ABG PH 7.504 (7.35-7.45); ABG TCO2 26.1 MMOL/L (23-27); Allen Test Positive; Pt O2 Delivery Device Ventilator
[2021-01-03] MEDS: MEROPENEM 500 MG in SODIUM CHLORIDE 0.9% 100 ML IV SCH ×4 (04:50→22:45)
[2021-01-03 06:04] LABS: Basophils % 0.1 % (0.0-0.8); Eosinophils # 0.1 10*3/uL (0.0-0.87); Eosinophils % 0.6 % (0.00-10.9); Hematocrit 20.7 VOL% (42.0-52.0); Immature Granulocytes % 0.7 %; Immature Granulocytes Absolute 0.07 #; Lymphocytes # 1.4 10*3/uL (1.4-4.0); Lymphocytes % 14.1 % (21.2-54.2); Mean Corpuscular HGB Conc 33.8 GM/DL (32-36); Mean Platelet Volume 10.7 FL (9.6-12.0); Monocytes % 6.2 % (1.7-12.7); Neutrophils % 78.3 % (38.7-73.9); Platelet Count 254 T/CUMM (130-400); Red Blood Count 2.03 MC/CUMM (3.8-5.5); Red Cell Distribution Width 14.4 % (9.3-17.3); White Blood Count 10.1 T/CUMM (4-12)
[2021-01-03 06:24] LABS: Albumin 1.3 G/DL (3.4-5.0); Bilirubin,Total 0.7 MG/DL (0.2-1.0); Calcium 7.7 MG/DL (8.5-10.1); Osmolality,Calculated 275.7 MOS/KG (273-304); Potassium 3.4 MMOL/L (3.5-5.1); Total Protein 6.3 G/DL (6.4-8.3)
[2021-01-03] MEDS: POTASSIUM CHLORIDE RIDER 10 MEQ in PREMIX 1 EACH IV PRN (06:42)
[2021-01-03] MEDS: ZINC OXIDE PASTE 113 GM TUBE TOP SCH ×2 (09:25→20:39)
[2021-01-03] MEDS: ENOXAPARIN 40 MG/0.4 ML SYRINGE SUBCUT SCH (09:25)
[2021-01-03] MEDS: DILTIAZEM 30 MG TABLET PO SCH ×3 (09:25→20:39)
[2021-01-03] MEDS: CLOPIDOGREL 75 MG TABLET PO SCH (09:25)
[2021-01-03] MEDS: PANTOPRAZOLE 40 MG VIAL IV SCH (09:25)
[2021-01-03] MEDS: carvediloL 12.5 MG TABLET PO SCH ×2 (09:25→20:39)
[2021-01-03] MEDS: ACETAMINOPHEN 325 MG/10.15 ML UDCUP PO PRN (09:26)
[2021-01-04] MEDS: GENTAMICIN INJ 400 MG in SODIUM CHLORIDE 0.9% 100 ML IV SCH (00:06)
[2021-01-04] MEDS: ALBUTEROL/IPRATROPIUM 3 ML NEB RESP TX SCH ×4 (00:17→19:00)
[2021-01-04] MEDS: DILTIAZEM IV SCH (02:25)
[2021-01-04 03:41] LABS: Basophils % 0.1 % (0.0-0.8); Eosinophils % 0.4 % (0.00-10.9); Hematocrit 28.1 VOL% (42.0-52.0); Hemoglobin 9.4 GM/DL (14.0-18.0); Immature Granulocytes % 0.7 %; Immature Granulocytes Absolute 0.07 #; Lymphocytes # 1.4 10*3/uL (1.4-4.0); Lymphocytes % 13.5 % (21.2-54.2); Mean Corpuscular HGB Conc 33.5 GM/DL (32-36); Mean Corpuscular Volume 97.6 FL (87-102); Monocytes % 5.9 % (1.7-12.7); Neutrophils % 79.4 % (38.7-73.9); Platelet Count 274 T/CUMM (130-400); Red Blood Count 2.88 MC/CUMM (3.8-5.5); Red Cell Distribution Width 16.4 % (9.3-17.3); White Blood Count 10.5 T/CUMM (4-12)
[2021-01-04 04:03] LABS: Albumin 1.3 G/DL (3.4-5.0); Bilirubin,Total 0.5 MG/DL (0.2-1.0); Calcium 7.6 MG/DL (8.5-10.1); Osmolality,Calculated 274.7 MOS/KG (273-304); Potassium 3.2 MMOL/L (3.5-5.1); Total Protein 6.6 G/DL (6.4-8.3)
[2021-01-04] MEDS: MEROPENEM 500 MG in SODIUM CHLORIDE 0.9% 100 ML IV SCH ×4 (04:17→21:28)
[2021-01-04 04:19] LABS: ABG Base Excess 5.7 MMOL/L (-2.5-2.5); ABG HCO3 29.5 MMOL/L (20-26); ABG Oxygen Saturation 82.4 % (95-100); ABG PCO2 39.5 MM HG (35-48); ABG PH 7.483 (7.35-7.45); ABG PO2 45.5 MM HG (80-95); ABG TCO2 28.3 MMOL/L (23-27); Allen Test Positive; Pt O2 Delivery Device Ventilator
[2021-01-04] MEDS: POTASSIUM CHLORIDE RIDER 10 MEQ in PREMIX 1 EACH IV PRN ×4 (05:05→08:35)
[2021-01-04 05:15] LABS: ABG Base Excess 5.4 MMOL/L (-2.5-2.5); ABG HCO3 29.3 MMOL/L (20-26); ABG Oxygen Saturation 99.6 % (95-100); ABG PCO2 35.2 MM HG (35-48); ABG PH 7.512 (7.35-7.45); ABG TCO2 23.9 MMOL/L (23-27)
[2021-01-04] MEDS: DILTIAZEM 30 MG TABLET PO SCH ×3 (08:36→20:14)
[2021-01-04] MEDS: ZINC OXIDE PASTE 113 GM TUBE TOP SCH ×2 (08:36→20:13)
[2021-01-04] MEDS: ENOXAPARIN 40 MG/0.4 ML SYRINGE SUBCUT SCH (08:36)
[2021-01-04] MEDS: carvediloL 12.5 MG TABLET PO SCH ×2 (08:36→20:13)
[2021-01-04] MEDS: CLOPIDOGREL 75 MG TABLET PO SCH (08:36)
[2021-01-04] MEDS: PANTOPRAZOLE 40 MG VIAL IV SCH (08:37)
[2021-01-04] MEDS ORDERED: POTASSIUM CHLORIDE 20 MEQ/15 ML UDCUP PER TUBE ONE (21:30)
[2021-01-05] MEDS: ALBUTEROL/IPRATROPIUM 3 ML NEB RESP TX SCH ×4 (00:26→19:38)
[2021-01-05] MEDS: DILTIAZEM IV SCH (02:23)
[2021-01-05] MEDS: MEROPENEM 500 MG in SODIUM CHLORIDE 0.9% 100 ML IV SCH ×4 (03:34→21:28)
[2021-01-05 03:41] LABS: Basophils % 0.1 % (0.0-0.8); Eosinophils # 0.1 10*3/uL (0.0-0.87); Eosinophils % 0.6 % (0.00-10.9); Hematocrit 27.6 VOL% (42.0-52.0); Immature Granulocytes % 0.8 %; Immature Granulocytes Absolute 0.07 #; Lymphocytes # 1.3 10*3/uL (1.4-4.0); Lymphocytes % 14.7 % (21.2-54.2); Mean Corpuscular HGB Conc 32.6 GM/DL (32-36); Mean Corpuscular Volume 100.7 FL (87-102); Monocytes % 7.4 % (1.7-12.7); Neutrophils % 76.4 % (38.7-73.9); Platelet Count 296 T/CUMM (130-400); Red Blood Count 2.74 MC/CUMM (3.8-5.5); Red Cell Distribution Width 16.1 % (9.3-17.3); White Blood Count 8.8 T/CUMM (4-12)
[2021-01-05 04:10] LABS: Albumin 1.4 G/DL (3.4-5.0); Bilirubin,Total 0.7 MG/DL (0.2-1.0); Calcium 7.8 MG/DL (8.5-10.1); Osmolality,Calculated 272.8 MOS/KG (273-304); Potassium 3.9 MMOL/L (3.5-5.1); Total Protein 6.6 G/DL (6.4-8.3)
[2021-01-05 04:29] LABS: ABG Base Excess 4.8 MMOL/L (-2.5-2.5); ABG HCO3 28.2 MMOL/L (20-26); ABG Oxygen Saturation 98.2 % (95-100); ABG PCO2 37.3 MM HG (35-48); ABG PH 7.497 (7.35-7.45); ABG PO2 126.5 MM HG (80-95); ABG TCO2 29.4 MMOL/L (23-27); Allen Test Positive; Pt O2 Delivery Device Ventilator
[2021-01-05] MEDS: POTASSIUM CHLORIDE 20 MEQ/15 ML UDCUP PER TUBE PRN (06:09)
[2021-01-05] MEDS: ZINC OXIDE PASTE 113 GM TUBE TOP SCH ×2 (09:05→21:19)
[2021-01-05] MEDS: PANTOPRAZOLE 40 MG VIAL IV SCH (09:10)
[2021-01-05] MEDS: carvediloL 12.5 MG TABLET PO SCH ×2 (09:15→21:19)
[2021-01-05] MEDS: CLOPIDOGREL 75 MG TABLET PO SCH (09:15)
[2021-01-05] MEDS: ENOXAPARIN 40 MG/0.4 ML SYRINGE SUBCUT SCH (09:15)
[2021-01-05] MEDS: DILTIAZEM 30 MG TABLET PO SCH ×3 (09:15→21:18)
[2021-01-05] MEDS: GENTAMICIN INJ 400 MG in SODIUM CHLORIDE 0.9% 100 ML IV SCH (12:25)
[2021-01-06] MEDS: ALBUTEROL/IPRATROPIUM 3 ML NEB RESP TX SCH ×4 (00:32→19:37)
[2021-01-06] MEDS: DILTIAZEM IV SCH (02:40)
[2021-01-06 02:59] LABS: Allen Test Positive; Pt O2 Delivery Device Ventilator
[2021-01-06 03:01] LABS: ABG Base Excess 4.7 MMOL/L (-2.5-2.5); ABG HCO3 28.7 MMOL/L (20-26); ABG Oxygen Saturation 99.1 % (95-100); ABG PCO2 38.2 MM HG (35-48)
[2021-01-06 04:48] LABS: Basophils % 0.1 % (0.0-0.8); Eosinophils # 0.1 10*3/uL (0.0-0.87); Eosinophils % 0.9 % (0.00-10.9); Hematocrit 27.9 VOL% (42.0-52.0); Hemoglobin 8.8 GM/DL (14.0-18.0); Immature Granulocytes Absolute 0.08 #; Lymphocytes # 1.3 10*3/uL (1.4-4.0); Lymphocytes % 15.6 % (21.2-54.2); Mean Corpuscular HGB Conc 31.5 GM/DL (32-36); Mean Corpuscular Volume 101.8 FL (87-102); Mean Platelet Volume 10.3 FL (9.6-12.0); Monocytes % 8.7 % (1.7-12.7); Neutrophils % 73.7 % (38.7-73.9); Platelet Count 342 T/CUMM (130-400); Red Blood Count 2.74 MC/CUMM (3.8-5.5); Red Cell Distribution Width 15.8 % (9.3-17.3); White Blood Count 8.2 T/CUMM (4-12)
[2021-01-06] MEDS: MEROPENEM 500 MG in SODIUM CHLORIDE 0.9% 100 ML IV SCH ×4 (04:50→21:56)
[2021-01-06 04:55] LABS: Albumin 1.2 G/DL (3.4-5.0); Bilirubin,Total 0.6 MG/DL (0.2-1.0); Calcium 7.5 MG/DL (8.5-10.1); Osmolality,Calculated 267.1 MOS/KG (273-304); Potassium 3.5 MMOL/L (3.5-5.1); Total Protein 6.3 G/DL (6.4-8.3)
[2021-01-06] MEDS: ENOXAPARIN 40 MG/0.4 ML SYRINGE SUBCUT SCH (08:50)
[2021-01-06] MEDS: carvediloL 12.5 MG TABLET PO SCH ×2 (08:50→21:55)
[2021-01-06] MEDS: PANTOPRAZOLE 40 MG VIAL IV SCH (08:50)
[2021-01-06] MEDS: DILTIAZEM 30 MG TABLET PO SCH ×3 (08:50→21:55)
[2021-01-06] MEDS: CLOPIDOGREL 75 MG TABLET PO SCH (08:50)
[2021-01-06] MEDS: ZINC OXIDE PASTE 113 GM TUBE TOP SCH ×2 (09:10→22:03)
[2021-01-07] MEDS: ALBUTEROL/IPRATROPIUM 3 ML NEB RESP TX SCH ×4 (00:05→19:33)
[2021-01-07] MEDS: GENTAMICIN INJ 400 MG in SODIUM CHLORIDE 0.9% 100 ML IV SCH (01:30)
[2021-01-07] MEDS: DILTIAZEM IV SCH (02:46)
[2021-01-07 03:20] LABS: ABG Base Excess 4.4 MMOL/L (-2.5-2.5); ABG HCO3 27.5 MMOL/L (20-26); ABG Oxygen Saturation 97.5 % (95-100); ABG PCO2 35.3 MM HG (35-48); ABG PO2 105.1 MM HG (80-95); ABG TCO2 28.6 MMOL/L (23-27)
[2021-01-07] MEDS: MEROPENEM 500 MG in SODIUM CHLORIDE 0.9% 100 ML IV SCH ×4 (05:24→21:15)
[2021-01-07] MEDS: DILTIAZEM 30 MG TABLET PO SCH ×3 (08:00→21:14)
[2021-01-07] MEDS: ENOXAPARIN 40 MG/0.4 ML SYRINGE SUBCUT SCH (08:00)
[2021-01-07] MEDS: carvediloL 12.5 MG TABLET PO SCH ×2 (08:00→21:14)
[2021-01-07] MEDS: PANTOPRAZOLE 40 MG VIAL IV SCH (08:00)
[2021-01-07] MEDS: CLOPIDOGREL 75 MG TABLET PO SCH (08:00)
[2021-01-07] MEDS: ZINC OXIDE PASTE 113 GM TUBE TOP SCH ×2 (08:02→21:15)
[2021-01-08] MEDS: ALBUTEROL/IPRATROPIUM 3 ML NEB RESP TX SCH ×4 (00:31→18:57)
[2021-01-08] MEDS: MEROPENEM 500 MG in SODIUM CHLORIDE 0.9% 100 ML IV SCH ×4 (03:26→21:22)
[2021-01-08 04:43] LABS: Basophils % 0.1 % (0.0-0.8); Eosinophils % 0.4 % (0.00-10.9); Hematocrit 29.4 VOL% (42.0-52.0); Hemoglobin 9.6 GM/DL (14.0-18.0); Immature Granulocytes % 0.6 %; Immature Granulocytes Absolute 0.05 #; Lymphocytes % 12.5 % (21.2-54.2); Mean Corpuscular HGB Conc 32.7 GM/DL (32-36); Mean Platelet Volume 9.8 FL (9.6-12.0); Monocytes % 6.3 % (1.7-12.7); Neutrophils % 80.1 % (38.7-73.9); Platelet Count 380 T/CUMM (130-400); Red Blood Count 2.91 MC/CUMM (3.8-5.5); Red Cell Distribution Width 15.7 % (9.3-17.3); White Blood Count 8.2 T/CUMM (4-12)
[2021-01-08 05:18] LABS: Calcium 8.3 MG/DL (8.5-10.1); Osmolality,Calculated 274.8 MOS/KG (273-304); Potassium 3.8 MMOL/L (3.5-5.1)
[2021-01-08] MEDS: carvediloL 12.5 MG TABLET PO SCH ×2 (08:00→21:28)
[2021-01-08] MEDS: PANTOPRAZOLE 40 MG VIAL IV SCH (08:00)
[2021-01-08] MEDS: DILTIAZEM 30 MG TABLET PO SCH ×3 (08:00→21:28)
[2021-01-08] MEDS: CLOPIDOGREL 75 MG TABLET PO SCH (08:00)
[2021-01-08] MEDS: ENOXAPARIN 40 MG/0.4 ML SYRINGE SUBCUT SCH (08:01)
[2021-01-08] MEDS: ZINC OXIDE PASTE 113 GM TUBE TOP SCH ×2 (08:04→21:35)
[2021-01-08] MEDS: GENTAMICIN INJ 400 MG in SODIUM CHLORIDE 0.9% 100 ML IV SCH (13:09)
[2021-01-09] MEDS: ALBUTEROL/IPRATROPIUM 3 ML NEB RESP TX SCH ×4 (00:08→19:41)
[2021-01-09] MEDS: MEROPENEM 500 MG in SODIUM CHLORIDE 0.9% 100 ML IV SCH ×4 (03:31→21:37)
[2021-01-09 05:51] LABS: Basophils % 0.3 % (0.0-0.8); Eosinophils % 0.4 % (0.00-10.9); Hematocrit 29.5 VOL% (42.0-52.0); Hemoglobin 9.8 GM/DL (14.0-18.0); Immature Granulocytes % 0.3 %; Immature Granulocytes Absolute 0.02 #; Lymphocytes # 1.1 10*3/uL (1.4-4.0); Lymphocytes % 14.6 % (21.2-54.2); Mean Corpuscular HGB Conc 33.2 GM/DL (32-36); Mean Corpuscular Volume 99.7 FL (87-102); Monocytes % 7.9 % (1.7-12.7); Neutrophils % 76.5 % (38.7-73.9); Platelet Count 441 T/CUMM (130-400); Red Blood Count 2.96 MC/CUMM (3.8-5.5); Red Cell Distribution Width 15.6 % (9.3-17.3); White Blood Count 7.6 T/CUMM (4-12)
[2021-01-09 06:14] LABS: Calcium 8.3 MG/DL (8.5-10.1); Osmolality,Calculated 273.8 MOS/KG (273-304); Potassium 3.9 MMOL/L (3.5-5.1)
[2021-01-09] MEDS: ZINC OXIDE PASTE 113 GM TUBE TOP SCH ×2 (08:33→20:50)
[2021-01-09] MEDS: carvediloL 12.5 MG TABLET PO SCH ×2 (08:33→20:50)
[2021-01-09] MEDS: DILTIAZEM 30 MG TABLET PO SCH ×3 (08:33→20:50)
[2021-01-09] MEDS: PANTOPRAZOLE 40 MG VIAL IV SCH (08:33)
[2021-01-09] MEDS: ENOXAPARIN 40 MG/0.4 ML SYRINGE SUBCUT SCH (08:33)
[2021-01-09] MEDS: CLOPIDOGREL 75 MG TABLET PO SCH (08:35)
[2021-01-10] MEDS: GENTAMICIN INJ 400 MG in SODIUM CHLORIDE 0.9% 100 ML IV SCH (00:35)
[2021-01-10] MEDS: ALBUTEROL/IPRATROPIUM 3 ML NEB RESP TX SCH ×4 (01:35→20:35)
[2021-01-10] MEDS: MEROPENEM 500 MG in SODIUM CHLORIDE 0.9% 100 ML IV SCH ×4 (05:21→23:20)
[2021-01-10 06:10] LABS: Basophils % 0.2 % (0.0-0.8); Eosinophils % 0.3 % (0.00-10.9); Hematocrit 30.5 VOL% (42.0-52.0); Hemoglobin 9.8 GM/DL (14.0-18.0); Immature Granulocytes % 0.3 %; Immature Granulocytes Absolute 0.03 #; Lymphocytes # 1.7 10*3/uL (1.4-4.0); Lymphocytes % 18.4 % (21.2-54.2); Mean Corpuscular HGB Conc 32.1 GM/DL (32-36); Mean Corpuscular Volume 101.7 FL (87-102); Monocytes % 8.1 % (1.7-12.7); Neutrophils % 72.7 % (38.7-73.9); Platelet Count 454 T/CUMM (130-400); Red Cell Distribution Width 15.3 % (9.3-17.3)
[2021-01-10 06:28] LABS: Calcium 8.2 MG/DL (8.5-10.1)
[2021-01-10] MEDS: CLOPIDOGREL 75 MG TABLET PO SCH (08:29)
[2021-01-10] MEDS: DILTIAZEM 30 MG TABLET PO SCH ×3 (08:29→20:40)
[2021-01-10] MEDS: carvediloL 12.5 MG TABLET PO SCH ×2 (08:29→20:40)
[2021-01-10] MEDS: ZINC OXIDE PASTE 113 GM TUBE TOP SCH ×2 (08:29→21:47)
[2021-01-10] MEDS: PANTOPRAZOLE 40 MG VIAL IV SCH (08:29)
[2021-01-10] MEDS: ENOXAPARIN 40 MG/0.4 ML SYRINGE SUBCUT SCH (08:29)
[2021-01-10] MEDS: ACETAMINOPHEN 325 MG/10.15 ML UDCUP PO PRN (20:41)
[2021-01-11] MEDS: ALBUTEROL/IPRATROPIUM 3 ML NEB RESP TX SCH ×4 (01:21→19:20)
[2021-01-11] MEDS: MEROPENEM 500 MG in SODIUM CHLORIDE 0.9% 100 ML IV SCH (04:10)
[2021-01-11] MEDS: ZINC OXIDE PASTE 113 GM TUBE TOP SCH ×2 (11:41→20:38)
[2021-01-11] MEDS: ENOXAPARIN 40 MG/0.4 ML SYRINGE SUBCUT SCH (11:41)
[2021-01-11] MEDS: carvediloL 12.5 MG TABLET PO SCH ×2 (11:41→20:38)
[2021-01-11] MEDS: CLOPIDOGREL 75 MG TABLET PO SCH (11:41)
[2021-01-11] MEDS: PANTOPRAZOLE 40 MG VIAL IV SCH (11:41)
[2021-01-11] MEDS: DILTIAZEM 30 MG TABLET PO SCH ×3 (11:41→20:38)
[2021-01-11] MEDS: GENTAMICIN INJ 400 MG in SODIUM CHLORIDE 0.9% 100 ML IV SCH (12:07)
[2021-01-12] MEDS: ALBUTEROL/IPRATROPIUM 3 ML NEB RESP TX SCH ×4 (00:14→20:25)
[2021-01-12 06:11] LABS: Basophils % 0.3 % (0.0-0.8); Eosinophils # 0.1 10*3/uL (0.0-0.87); Eosinophils % 0.8 % (0.00-10.9); Hematocrit 30.8 VOL% (42.0-52.0); Hemoglobin 9.6 GM/DL (14.0-18.0); Immature Granulocytes % 0.4 %; Immature Granulocytes Absolute 0.03 #; Lymphocytes # 1.6 10*3/uL (1.4-4.0); Lymphocytes % 20.4 % (21.2-54.2); Mean Corpuscular HGB Conc 31.2 GM/DL (32-36); Mean Corpuscular Volume 105.1 FL (87-102); Mean Platelet Volume 10.2 FL (9.6-12.0); Monocytes % 8.7 % (1.7-12.7); Neutrophils % 69.4 % (38.7-73.9); Platelet Count 423 T/CUMM (130-400); Red Blood Count 2.93 MC/CUMM (3.8-5.5); White Blood Count 7.9 T/CUMM (4-12)
[2021-01-12 06:36] LABS: Calcium 8.2 MG/DL (8.5-10.1); Potassium 4.2 MMOL/L (3.5-5.1)
[2021-01-12] MEDS: DILTIAZEM 30 MG TABLET PO SCH ×3 (10:35→20:56)
[2021-01-12] MEDS: PANTOPRAZOLE 40 MG VIAL IV SCH (10:36)
[2021-01-12] MEDS: ZINC OXIDE PASTE 113 GM TUBE TOP SCH ×2 (10:36→20:57)
[2021-01-12] MEDS: ENOXAPARIN 40 MG/0.4 ML SYRINGE SUBCUT SCH (10:43)
[2021-01-12] MEDS: CLOPIDOGREL 75 MG TABLET PO SCH (10:45)
[2021-01-12] MEDS: carvediloL 12.5 MG TABLET PO SCH ×2 (11:24→20:56)
[2021-01-12] MEDS: GENTAMICIN INJ 400 MG in SODIUM CHLORIDE 0.9% 100 ML IV SCH (23:51)
[2021-01-13] MEDS: ALBUTEROL/IPRATROPIUM 3 ML NEB RESP TX SCH ×4 (00:20→18:50)
[2021-01-13] MEDS: ZINC OXIDE PASTE 113 GM TUBE TOP SCH ×2 (09:39→20:39)
[2021-01-13] MEDS: carvediloL 12.5 MG TABLET PO SCH ×2 (09:39→20:38)
[2021-01-13] MEDS: CLOPIDOGREL 75 MG TABLET PO SCH (09:39)
[2021-01-13] MEDS: DILTIAZEM 30 MG TABLET PO SCH ×3 (09:39→20:39)
[2021-01-13] MEDS: ENOXAPARIN 40 MG/0.4 ML SYRINGE SUBCUT SCH (09:39)
[2021-01-14] MEDS: ALBUTEROL/IPRATROPIUM 3 ML NEB RESP TX SCH ×4 (00:10→19:04)
[2021-01-14] MEDS: OMEPRAZOLE ODT 20 MG TABLET PEG SCH (05:58)
[2021-01-14] MEDS: DILTIAZEM 30 MG TABLET PO SCH ×3 (08:38→20:32)
[2021-01-14] MEDS: ENOXAPARIN 40 MG/0.4 ML SYRINGE SUBCUT SCH (08:38)
[2021-01-14] MEDS: carvediloL 12.5 MG TABLET PO SCH ×2 (08:39→20:32)
[2021-01-14] MEDS: CLOPIDOGREL 75 MG TABLET PO SCH (08:39)
[2021-01-14] MEDS: ZINC OXIDE PASTE 113 GM TUBE TOP SCH ×2 (08:39→20:32)
[2021-01-15] MEDS: ALBUTEROL/IPRATROPIUM 3 ML NEB RESP TX SCH ×4 (01:30→19:21)
[2021-01-15] MEDS ORDERED: SODIUM CHLORIDE 0.9% 250 ML IV ONE ×2 (01:40→03:50)
[2021-01-15] MEDS: ACETAMINOPHEN 325 MG/10.15 ML UDCUP PO PRN (01:47)
[2021-01-15] MEDS: OMEPRAZOLE ODT 20 MG TABLET PEG SCH (05:31)
[2021-01-15 05:35] LABS: Basophils % 0.1 % (0.0-0.8); Eosinophils % 0.1 % (0.00-10.9); Hematocrit 35.5 VOL% (42.0-52.0); Hemoglobin 11.4 GM/DL (14.0-18.0); Immature Granulocytes % 0.5 %; Immature Granulocytes Absolute 0.08 #; Lymphocytes # 0.8 10*3/uL (1.4-4.0); Lymphocytes % 5.4 % (21.2-54.2); Mean Corpuscular HGB Conc 32.1 GM/DL (32-36); Mean Platelet Volume 10.1 FL (9.6-12.0); Neutrophils % 89.9 % (38.7-73.9); Platelet Count 440 T/CUMM (130-400); Red Blood Count 3.48 MC/CUMM (3.8-5.5); Red Cell Distribution Width 15.1 % (9.3-17.3); White Blood Count 14.9 T/CUMM (4-12)
[2021-01-15 06:04] LABS: Calcium 8.9 MG/DL (8.5-10.1); Osmolality,Calculated 272.2 MOS/KG (273-304); Potassium 3.8 MMOL/L (3.5-5.1)
[2021-01-15] MEDS: DILTIAZEM 30 MG TABLET PO SCH ×3 (08:39→21:34)
[2021-01-15] MEDS: carvediloL 12.5 MG TABLET PO SCH ×2 (08:40→21:34)
[2021-01-15] MEDS: ENOXAPARIN 40 MG/0.4 ML SYRINGE SUBCUT SCH (08:40)
[2021-01-15] MEDS: ZINC OXIDE PASTE 113 GM TUBE TOP SCH ×2 (08:40→21:38)
[2021-01-15] MEDS: CLOPIDOGREL 75 MG TABLET PO SCH (08:40)
[2021-01-15] MEDS: MEROPENEM 500 MG in SODIUM CHLORIDE 0.9% 100 ML IV SCH ×2 (15:24→21:29)
[2021-01-16] MEDS: ACETAMINOPHEN 325 MG/10.15 ML UDCUP PO PRN (00:09)
[2021-01-16] MEDS: ALBUTEROL/IPRATROPIUM 3 ML NEB RESP TX SCH ×4 (00:51→19:13)
[2021-01-16] MEDS: MEROPENEM 500 MG in SODIUM CHLORIDE 0.9% 100 ML IV SCH ×4 (03:53→22:55)
[2021-01-16 05:51] LABS: Basophils % 0.1 % (0.0-0.8); Hematocrit 33.8 VOL% (42.0-52.0); Hemoglobin 10.8 GM/DL (14.0-18.0); Immature Granulocytes % 0.5 %; Immature Granulocytes Absolute 0.06 #; Lymphocytes # 1.6 10*3/uL (1.4-4.0); Lymphocytes % 12.8 % (21.2-54.2); Mean Corpuscular Volume 101.8 FL (87-102); Mean Platelet Volume 10.7 FL (9.6-12.0); Monocytes % 5.6 % (1.7-12.7); Platelet Count 323 T/CUMM (130-400); Red Blood Count 3.32 MC/CUMM (3.8-5.5); Red Cell Distribution Width 15.1 % (9.3-17.3); White Blood Count 12.6 T/CUMM (4-12)
[2021-01-16 06:03] LABS: Calcium 8.6 MG/DL (8.5-10.1)
[2021-01-16] MEDS: OMEPRAZOLE ODT 20 MG TABLET PEG SCH (06:06)
[2021-01-16 07:57] LABS: Band Neutrophils 16 % (0-10); Hypochromasia 1+; Lymphocytes 13 % (20-55); Metamyelocytes 1 %; Segmented Neutrophils 64 % (50-85); Total Cells Counted 100
[2021-01-16 07:58] LABS: Microcytosis 1+; Platelet Estimate Normal
[2021-01-16] MEDS: DILTIAZEM 30 MG TABLET PO SCH ×3 (09:48→22:52)
[2021-01-16] MEDS: carvediloL 12.5 MG TABLET PO SCH ×2 (09:49→22:54)
[2021-01-16] MEDS: CLOPIDOGREL 75 MG TABLET PO SCH (10:12)
[2021-01-16] MEDS: ZINC OXIDE PASTE 113 GM TUBE TOP SCH ×2 (10:13→22:54)
[2021-01-16] MEDS: ENOXAPARIN 40 MG/0.4 ML SYRINGE SUBCUT SCH (10:13)
[2021-01-17] MEDS: ALBUTEROL/IPRATROPIUM 3 ML NEB RESP TX SCH ×5 (00:58→19:35)
[2021-01-17] MEDS: MEROPENEM 500 MG in SODIUM CHLORIDE 0.9% 100 ML IV SCH ×4 (04:46→20:33)
[2021-01-17] MEDS: OMEPRAZOLE ODT 20 MG TABLET PEG SCH (08:24)
[2021-01-17] MEDS: DILTIAZEM 30 MG TABLET PO SCH ×3 (09:05→20:34)
[2021-01-17] MEDS: CLOPIDOGREL 75 MG TABLET PO SCH (09:06)
[2021-01-17] MEDS: ENOXAPARIN 40 MG/0.4 ML SYRINGE SUBCUT SCH (09:07)
[2021-01-17] MEDS: ZINC OXIDE PASTE 113 GM TUBE TOP SCH ×2 (09:08→23:20)
[2021-01-17] MEDS: carvediloL 12.5 MG TABLET PO SCH ×2 (09:10→21:34)
[2021-01-18] MEDS: ACETAMINOPHEN 325 MG/10.15 ML UDCUP PO PRN ×2 (01:02→09:47)
[2021-01-18] MEDS: ALBUTEROL/IPRATROPIUM 3 ML NEB RESP TX SCH ×4 (01:16→19:57)
[2021-01-18] MEDS: MEROPENEM 500 MG in SODIUM CHLORIDE 0.9% 100 ML IV SCH ×4 (03:43→20:13)
[2021-01-18 07:40] LABS: Basophils % 0.1 % (0.0-0.8); Eosinophils % 0.6 % (0.00-10.9); Hematocrit 31.3 VOL% (42.0-52.0); Hemoglobin 9.8 GM/DL (14.0-18.0); Immature Granulocytes % 0.9 %; Immature Granulocytes Absolute 0.06 #; Lymphocytes # 1.1 10*3/uL (1.4-4.0); Lymphocytes % 16.2 % (21.2-54.2); Mean Corpuscular HGB Conc 31.3 GM/DL (32-36); Mean Corpuscular Volume 104.7 FL (87-102); Mean Platelet Volume 10.7 FL (9.6-12.0); Monocytes % 7.7 % (1.7-12.7); Neutrophils % 74.5 % (38.7-73.9); Platelet Count 306 T/CUMM (130-400); Red Blood Count 2.99 MC/CUMM (3.8-5.5); Red Cell Distribution Width 14.7 % (9.3-17.3); White Blood Count 6.9 T/CUMM (4-12)
[2021-01-18 08:16] LABS: Calcium 8.4 MG/DL (8.5-10.1); Osmolality,Calculated 281.5 MOS/KG (273-304); Potassium 3.4 MMOL/L (3.5-5.1)
[2021-01-18] MEDS: ENOXAPARIN 40 MG/0.4 ML SYRINGE SUBCUT SCH (09:47)
[2021-01-18] MEDS: CLOPIDOGREL 75 MG TABLET PO SCH (09:48)
[2021-01-18] MEDS: OMEPRAZOLE ODT 20 MG TABLET PEG SCH (09:48)
[2021-01-18] MEDS: DILTIAZEM 30 MG TABLET PO SCH ×3 (12:05→20:10)
[2021-01-18] MEDS: carvediloL 12.5 MG TABLET PO SCH ×2 (12:07→20:13)
[2021-01-18] MEDS: ZINC OXIDE PASTE 113 GM TUBE TOP SCH ×2 (12:08→20:13)
[2021-01-18] MEDS: POTASSIUM CHLORIDE 20 MEQ/15 ML UDCUP PER TUBE PRN (22:05)
[2021-01-19] MEDS: ALBUTEROL/IPRATROPIUM 3 ML NEB RESP TX SCH ×4 (00:20→19:55)
[2021-01-19] MEDS: MEROPENEM 500 MG in SODIUM CHLORIDE 0.9% 100 ML IV SCH ×4 (03:09→22:46)
[2021-01-19 07:05] LABS: INR 1.1; PT Patient Result 11.6 SECS (9.8-11.9)
[2021-01-19] MEDS: DILTIAZEM 30 MG TABLET PO SCH ×3 (08:11→22:45)
[2021-01-19] MEDS: OMEPRAZOLE ODT 20 MG TABLET PEG SCH (08:11)
[2021-01-19] MEDS: carvediloL 12.5 MG TABLET PO SCH ×2 (08:11→22:45)
[2021-01-19] MEDS: ZINC OXIDE PASTE 113 GM TUBE TOP SCH ×2 (08:11→22:45)
[2021-01-19] MEDS: CLOPIDOGREL 75 MG TABLET PO SCH (08:11)
[2021-01-19] MEDS ORDERED: LACTATED RINGERS 1,000 ML IV SCH (10:30)
[2021-01-20] MEDS: ALBUTEROL/IPRATROPIUM 3 ML NEB RESP TX SCH ×4 (01:53→19:32)
[2021-01-20] MEDS: MEROPENEM 500 MG in SODIUM CHLORIDE 0.9% 100 ML IV SCH ×4 (04:18→21:45)
[2021-01-20 07:13] LABS: Basophils % 0.2 % (0.0-0.8); Eosinophils % 0.4 % (0.00-10.9); Hematocrit 32.1 VOL% (42.0-52.0); Hemoglobin 10.4 GM/DL (14.0-18.0); Immature Granulocytes % 1.5 %; Immature Granulocytes Absolute 0.14 #; Lymphocytes # 1.6 10*3/uL (1.4-4.0); Lymphocytes % 17.4 % (21.2-54.2); Mean Corpuscular HGB Conc 32.4 GM/DL (32-36); Mean Corpuscular Volume 102.6 FL (87-102); Mean Platelet Volume 10.8 FL (9.6-12.0); Monocytes % 8.2 % (1.7-12.7); Neutrophils % 72.3 % (38.7-73.9); Platelet Count 296 T/CUMM (130-400); Red Blood Count 3.13 MC/CUMM (3.8-5.5); Red Cell Distribution Width 14.6 % (9.3-17.3); White Blood Count 9.3 T/CUMM (4-12)
[2021-01-20 07:38] LABS: Calcium 8.7 MG/DL (8.5-10.1); Osmolality,Calculated 280.5 MOS/KG (273-304); Potassium 4.1 MMOL/L (3.5-5.1)
[2021-01-20] MEDS: ZINC OXIDE PASTE 113 GM TUBE TOP SCH ×2 (09:46→21:46)
[2021-01-20] MEDS: CLOPIDOGREL 75 MG TABLET PO SCH (09:46)
[2021-01-20] MEDS: carvediloL 12.5 MG TABLET PO SCH ×2 (09:46→21:45)
[2021-01-20] MEDS: DILTIAZEM 30 MG TABLET PO SCH ×3 (09:46→21:45)
[2021-01-20] MEDS: OMEPRAZOLE ODT 20 MG TABLET PEG SCH (09:46)
[2021-01-21] MEDS: ALBUTEROL/IPRATROPIUM 3 ML NEB RESP TX SCH ×4 (01:41→20:06)
[2021-01-21] MEDS: MEROPENEM 500 MG in SODIUM CHLORIDE 0.9% 100 ML IV SCH ×4 (02:46→20:13)
[2021-01-21 05:35] LABS: Basophils % 0.2 % (0.0-0.8); Eosinophils % 0.4 % (0.00-10.9); Hematocrit 31.1 VOL% (42.0-52.0); Hemoglobin 9.8 GM/DL (14.0-18.0); Immature Granulocytes % 0.8 %; Immature Granulocytes Absolute 0.08 #; Lymphocytes # 1.7 10*3/uL (1.4-4.0); Lymphocytes % 17.8 % (21.2-54.2); Mean Corpuscular HGB Conc 31.5 GM/DL (32-36); Mean Corpuscular Volume 105.4 FL (87-102); Mean Platelet Volume 10.5 FL (9.6-12.0); Monocytes % 8.7 % (1.7-12.7); Neutrophils % 72.1 % (38.7-73.9); Platelet Count 304 T/CUMM (130-400); Red Blood Count 2.95 MC/CUMM (3.8-5.5); Red Cell Distribution Width 14.7 % (9.3-17.3); White Blood Count 9.5 T/CUMM (4-12)
[2021-01-21 06:03] LABS: Calcium 8.7 MG/DL (8.5-10.1); Osmolality,Calculated 281.4 MOS/KG (273-304); Potassium 3.9 MMOL/L (3.5-5.1)
[2021-01-21] MEDS: POTASSIUM CHLORIDE 20 MEQ/15 ML UDCUP PER TUBE PRN (09:26)
[2021-01-21] MEDS: carvediloL 12.5 MG TABLET PO SCH ×2 (09:26→20:13)
[2021-01-21] MEDS: OMEPRAZOLE ODT 20 MG TABLET PEG SCH (09:26)
[2021-01-21] MEDS: DILTIAZEM 30 MG TABLET PO SCH ×3 (09:29→20:33)
[2021-01-21] MEDS: ZINC OXIDE PASTE 113 GM TUBE TOP SCH ×2 (09:30→20:15)
[2021-01-21] MEDS: ACETAMINOPHEN 325 MG/10.15 ML UDCUP PO PRN (20:15)
[2021-01-22] MEDS: MEROPENEM 500 MG in SODIUM CHLORIDE 0.9% 100 ML IV SCH ×3 (02:31→15:30)
[2021-01-22] MEDS: ALBUTEROL/IPRATROPIUM 3 ML NEB RESP TX SCH ×4 (02:45→19:22)
[2021-01-22 05:27] LABS: Calcium 8.5 MG/DL (8.5-10.1); Osmolality,Calculated 282.4 MOS/KG (273-304); Potassium 4.1 MMOL/L (3.5-5.1)
[2021-01-22] MEDS: OMEPRAZOLE ODT 20 MG TABLET PEG SCH (09:52)
[2021-01-22] MEDS: DILTIAZEM 30 MG TABLET PO SCH ×3 (09:53→20:32)
[2021-01-22] MEDS: ZINC OXIDE PASTE 113 GM TUBE TOP SCH ×2 (09:53→20:32)
[2021-01-22] MEDS: carvediloL 12.5 MG TABLET PO SCH ×2 (09:53→20:32)
[2021-01-23] MEDS: ALBUTEROL/IPRATROPIUM 3 ML NEB RESP TX SCH ×4 (00:20→19:14)
[2021-01-23 05:56] LABS: Basophils % 0.2 % (0.0-0.8); Eosinophils % 0.3 % (0.00-10.9); Hematocrit 31.5 VOL% (42.0-52.0); Hemoglobin 9.9 GM/DL (14.0-18.0); Immature Granulocytes % 0.7 %; Immature Granulocytes Absolute 0.06 #; Lymphocytes # 1.8 10*3/uL (1.4-4.0); Lymphocytes % 19.9 % (21.2-54.2); Mean Corpuscular HGB Conc 31.4 GM/DL (32-36); Mean Corpuscular Volume 102.9 FL (87-102); Mean Platelet Volume 10.5 FL (9.6-12.0); Monocytes % 7.1 % (1.7-12.7); Neutrophils % 71.8 % (38.7-73.9); Platelet Count 285 T/CUMM (130-400); Red Blood Count 3.06 MC/CUMM (3.8-5.5); Red Cell Distribution Width 14.6 % (9.3-17.3); White Blood Count 8.9 T/CUMM (4-12)
[2021-01-23 06:09] LABS: Calcium 8.7 MG/DL (8.5-10.1); Osmolality,Calculated 268.4 MOS/KG (273-304); Potassium 4.1 MMOL/L (3.5-5.1)
[2021-01-23] MEDS: DILTIAZEM 30 MG TABLET PO SCH ×3 (08:57→20:53)
[2021-01-23] MEDS: carvediloL 12.5 MG TABLET PO SCH ×2 (08:58→20:53)
[2021-01-23] MEDS: ZINC OXIDE PASTE 113 GM TUBE TOP SCH ×2 (08:58→20:55)
[2021-01-23] MEDS: OMEPRAZOLE ODT 20 MG TABLET PEG SCH (08:58)
[2021-01-23] MEDS ORDERED: NYSTATIN 500,000 UNIT/5 ML UDCUP PO SCH (17:00)
[2021-01-23] MEDS: DONEPEZIL 10 MG TABLET PO SCH (20:53)
[2021-01-23] MEDS: ROSUVASTATIN 20 MG TABLET PO SCH (20:53)
[2021-01-24] MEDS: ALBUTEROL/IPRATROPIUM 3 ML NEB RESP TX SCH ×4 (00:49→18:52)
[2021-01-24 06:02] LABS: Basophils % 0.1 % (0.0-0.8); Eosinophils # 0.1 10*3/uL (0.0-0.87); Eosinophils % 0.7 % (0.00-10.9); Hematocrit 30.9 VOL% (42.0-52.0); Immature Granulocytes % 0.7 %; Immature Granulocytes Absolute 0.06 #; Lymphocytes # 1.7 10*3/uL (1.4-4.0); Mean Corpuscular HGB Conc 32.4 GM/DL (32-36); Mean Platelet Volume 10.9 FL (9.6-12.0); Monocytes % 6.3 % (1.7-12.7); Neutrophils % 73.2 % (38.7-73.9); Platelet Count 285 T/CUMM (130-400); Red Blood Count 3.03 MC/CUMM (3.8-5.5); Red Cell Distribution Width 14.5 % (9.3-17.3); White Blood Count 8.9 T/CUMM (4-12)
[2021-01-24 06:15] LABS: Folate 8.6 NG/ML (5.38-24.0)
[2021-01-24 06:20] LABS: Calcium 8.4 MG/DL (8.5-10.1)
[2021-01-24] MEDS: carvediloL 12.5 MG TABLET PO SCH ×2 (08:48→20:51)
[2021-01-24] MEDS: VENLAFAXINE 75 MG TABLET PO SCH (08:48)
[2021-01-24] MEDS: DILTIAZEM 30 MG TABLET PO SCH ×3 (08:49→20:50)
[2021-01-24] MEDS: OMEPRAZOLE ODT 20 MG TABLET PEG SCH (08:49)
[2021-01-24] MEDS: ZINC OXIDE PASTE 113 GM TUBE TOP SCH ×2 (08:49→20:51)
[2021-01-24] MEDS: ROSUVASTATIN 20 MG TABLET PO SCH (20:50)
[2021-01-24] MEDS: DONEPEZIL 10 MG TABLET PO SCH (20:50)
[2021-01-25] MEDS: ALBUTEROL/IPRATROPIUM 3 ML NEB RESP TX SCH ×4 (00:22→19:01)
[2021-01-25 05:34] LABS: Basophils % 0.1 % (0.0-0.8); Eosinophils % 0.5 % (0.00-10.9); Hematocrit 30.4 VOL% (42.0-52.0); Hemoglobin 10.2 GM/DL (14.0-18.0); Immature Granulocytes % 0.6 %; Immature Granulocytes Absolute 0.05 #; Lymphocytes # 1.4 10*3/uL (1.4-4.0); Lymphocytes % 17.2 % (21.2-54.2); Mean Corpuscular HGB Conc 33.6 GM/DL (32-36); Mean Corpuscular Volume 99.3 FL (87-102); Mean Platelet Volume 11.1 FL (9.6-12.0); Monocytes % 5.4 % (1.7-12.7); Neutrophils % 76.2 % (38.7-73.9); Platelet Count 282 T/CUMM (130-400); Red Blood Count 3.06 MC/CUMM (3.8-5.5); Red Cell Distribution Width 14.2 % (9.3-17.3); White Blood Count 8.2 T/CUMM (4-12)
[2021-01-25 06:11] LABS: Risk Ratio 3.04; VLDL CHOLESTEROL 15.2 MG/DL
[2021-01-25 06:47] LABS: Calcium 8.7 MG/DL (8.5-10.1); Osmolality,Calculated 266.5 MOS/KG (273-304)
[2021-01-25] MEDS: carvediloL 12.5 MG TABLET PO SCH ×2 (10:34→20:39)
[2021-01-25] MEDS: OMEPRAZOLE ODT 20 MG TABLET PEG SCH (10:34)
[2021-01-25] MEDS: ZINC OXIDE PASTE 113 GM TUBE TOP SCH ×2 (10:34→20:40)
[2021-01-25] MEDS: DILTIAZEM 30 MG TABLET PO SCH ×3 (10:34→20:39)
[2021-01-25] MEDS: VENLAFAXINE 75 MG TABLET PO SCH (10:34)
[2021-01-25] MEDS ORDERED: MAGNESIUM SULF RIDER 2 GM in PREMIX 1 EACH IV ONE (13:58)
[2021-01-25] MEDS: ROSUVASTATIN 20 MG TABLET PO SCH (20:39)
[2021-01-25] MEDS: DONEPEZIL 10 MG TABLET PO SCH (20:39)
[2021-01-26] MEDS: ALBUTEROL/IPRATROPIUM 3 ML NEB RESP TX SCH ×4 (01:31→14:42)
[2021-01-26 05:09] LABS: Basophils % 0.2 % (0.0-0.8); Eosinophils # 0.1 10*3/uL (0.0-0.87); Eosinophils % 0.5 % (0.00-10.9); Hematocrit 31.4 VOL% (42.0-52.0); Hemoglobin 10.2 GM/DL (14.0-18.0); Immature Granulocytes % 0.5 %; Immature Granulocytes Absolute 0.05 #; Lymphocytes # 1.9 10*3/uL (1.4-4.0); Lymphocytes % 19.7 % (21.2-54.2); Mean Corpuscular HGB Conc 32.5 GM/DL (32-36); Mean Corpuscular Volume 101.6 FL (87-102); Mean Platelet Volume 10.7 FL (9.6-12.0); Monocytes % 4.7 % (1.7-12.7); Neutrophils % 74.4 % (38.7-73.9); Platelet Count 284 T/CUMM (130-400); Red Blood Count 3.09 MC/CUMM (3.8-5.5); Red Cell Distribution Width 14.1 % (9.3-17.3); White Blood Count 9.5 T/CUMM (4-12)
[2021-01-26 05:25] LABS: INR 1.1; PT Patient Result 11.9 SECS (9.8-11.9)
[2021-01-26 05:32] LABS: Calcium 8.3 MG/DL (8.5-10.1); Osmolality,Calculated 268.2 MOS/KG (273-304); Potassium 4.2 MMOL/L (3.5-5.1)
[2021-01-26] MEDS ORDERED: LACTATED RINGERS 1,000 ML IV SCH (08:00)
[2021-01-26] MEDS: OMEPRAZOLE ODT 20 MG TABLET PEG SCH (10:39)
[2021-01-26] MEDS: ZINC OXIDE PASTE 113 GM TUBE TOP SCH ×2 (10:39→21:17)
[2021-01-26] MEDS: DILTIAZEM 30 MG TABLET PO SCH ×3 (10:40→21:15)
[2021-01-26] MEDS: VENLAFAXINE 75 MG TABLET PO SCH (10:40)
[2021-01-26] MEDS: carvediloL 12.5 MG TABLET PO SCH ×2 (10:40→21:15)
[2021-01-26] MEDS ORDERED: LIDOCAINE 2% 5 ML VIAL ONE (14:57)
[2021-01-26] MEDS ORDERED: ETOMIDATE 20 MG/10 ML VIAL IV ONE (14:57)
[2021-01-26] MEDS ORDERED: propofoL 200 MG/20 ML VIAL IV ONE (14:58)
[2021-01-26] MEDS: LACTATED RINGERS 1,000 ML IV SCH ×2 (15:34→17:40)
[2021-01-26] MEDS ORDERED: CIPROFLOXACIN INJ 200 MG in PREMIX 1 EACH IV ONE (15:45)
[2021-01-26] MEDS: ROSUVASTATIN 20 MG TABLET PO SCH (21:15)
[2021-01-27] MEDS: ALBUTEROL/IPRATROPIUM 3 ML NEB RESP TX SCH ×3 (00:25→13:40)
[2021-01-27] MEDS: DILTIAZEM 30 MG TABLET PO SCH ×2 (09:20→15:49)
[2021-01-27] MEDS: OMEPRAZOLE ODT 20 MG TABLET PEG SCH (09:20)
[2021-01-27] MEDS: CLOPIDOGREL 75 MG TABLET PO SCH (09:20)
[2021-01-27] MEDS: carvediloL 12.5 MG TABLET PO SCH (09:20)
[2021-01-27] MEDS: VENLAFAXINE 75 MG TABLET PO SCH (09:20)
[2021-01-27] MEDS: ZINC OXIDE PASTE 113 GM TUBE TOP SCH (09:21)
[2021-01-27] MEDS ORDERED: SODIUM CHLORIDE 0.9% 250 ML IV ONE (14:19)
[2021-01-27 15:57] VITALS: BP 115/83
== END 2021-01-27 18:51 | DRG 130 ==
LOC: EDBD → EDUNIT# → N.ED 22:40 → SUATTDRO 12-25 02:37 → N.EDINP 12-25 02:37 → N.ICU 12-25 17:34 → N.5E 01-08 12:11
PROVIDERS: ADMIT Internal Medicine; ATTEND Internal Medicine
PROC: EGDWPEG (ICD-10-PCS; 2021-01-26 12:05)

== ENCOUNTER 2021-02-22 10:10 | Inpatient (IN) ==
[2021-02-22] MEDS ORDERED: SODIUM CHLORIDE 0.9% 1,000 ML IV STA (10:38)
[2021-02-22 11:25] LABS: Basophils % 0.1 % (0.0-0.8); Hematocrit 34.9 VOL% (42.0-52.0); Hemoglobin 11.6 GM/DL (14.0-18.0); Immature Granulocytes Absolute 0.16 #; Lymphocytes # 1.6 10*3/uL (1.4-4.0); Mean Corpuscular HGB Conc 33.2 GM/DL (32-36); Mean Corpuscular Volume 99.7 FL (87-102); Mean Platelet Volume 8.8 FL (9.6-12.0); Monocytes % 4.7 % (1.7-12.7); Neutrophils % 84.2 % (38.7-73.9); Platelet Count 439 T/CUMM (130-400); Red Cell Distribution Width 14.6 % (9.3-17.3); White Blood Count 16.1 T/CUMM (4-12)
[2021-02-22 11:45] LABS: Albumin 1.8 G/DL (3.4-5.0); Bilirubin,Total 0.6 MG/DL (0.2-1.0); Calcium 8.1 MG/DL (8.5-10.1); Osmolality,Calculated 265.5 MOS/KG (273-304); Potassium 3.5 MMOL/L (3.5-5.1); Total Protein 7.9 G/DL (6.4-8.2)
[2021-02-22 13:05] LABS: Amorphous Crystals,Urine Occasional /HPF (Few); Bilirubin,Urine Negative (Negative); Blood, Urine Negative (Negative); Glucose,Urine (UA) Negative (Negative); Ketones,Urine Negative (Negative); Mucus,Urine Occasional /LPF (Occasional); Nitrite,Urine Negative (Negative); Protein,Urine Negative; Urine Appearance CLOUDY (Clear); Urine Color Yellow (Yellow); Urine Specific Gravity 1.014 (1.001-1.035)
[2021-02-22] MEDS ORDERED: DEXTROSE 50% 25 GM/50 ML VIAL IV PRN (13:14)
[2021-02-22] MEDS ORDERED: GLUCAGON 1 MG VIAL IM PRN (13:14)
[2021-02-22] MEDS: MEROPENEM 500 MG in SODIUM CHLORIDE 0.9% 100 ML IV SCH ×2 (13:44→20:31)
[2021-02-22] MEDS ORDERED: ACETAMINOPHEN 325 MG TABLET PEG PRN (15:10)
[2021-02-22] MEDS: DILTIAZEM 30 MG TABLET PO SCH ×2 (15:30→20:32)
[2021-02-22] MEDS: ENOXAPARIN 40 MG/0.4 ML SYRINGE SUBCUT SCH (15:30)
[2021-02-22] MEDS: VANCOMYCIN INJ 1,000 MG in SODIUM CHLORIDE 0.9% 250 ML IV SCH (15:35)
[2021-02-22] MEDS: DONEPEZIL 10 MG TABLET PEG SCH (20:32)
[2021-02-22] MEDS: carvediloL 12.5 MG TABLET PEG SCH (20:32)
[2021-02-23] MEDS: MEROPENEM 500 MG in SODIUM CHLORIDE 0.9% 100 ML IV SCH ×4 (01:39→20:20)
[2021-02-23 05:08] LABS: Basophils % 0.1 % (0.0-0.8); Hematocrit 32.2 VOL% (42.0-52.0); Hemoglobin 10.5 GM/DL (14.0-18.0); Immature Granulocytes % 0.8 %; Immature Granulocytes Absolute 0.11 #; Lymphocytes # 2.4 10*3/uL (1.4-4.0); Lymphocytes % 18.2 % (21.2-54.2); Mean Corpuscular HGB Conc 32.6 GM/DL (32-36); Mean Corpuscular Volume 100.3 FL (87-102); Mean Platelet Volume 9.2 FL (9.6-12.0); Monocytes % 5.1 % (1.7-12.7); Neutrophils % 75.8 % (38.7-73.9); Platelet Count 439 T/CUMM (130-400); Red Blood Count 3.21 MC/CUMM (3.8-5.5); Red Cell Distribution Width 14.9 % (9.3-17.3); White Blood Count 13.3 T/CUMM (4-12)
[2021-02-23 05:42] LABS: Albumin 1.8 G/DL (3.4-5.0); Bilirubin,Total 1.3 MG/DL (0.2-1.0); Calcium 8.7 MG/DL (8.5-10.1); Osmolality,Calculated 270.1 MOS/KG (273-304); Potassium 3.4 MMOL/L (3.5-5.1); Risk Ratio 2.57; Thyroid Stimulating Hormone 2.33 uIU/ml (0.358-3.74); Total Protein 7.5 G/DL (6.4-8.2); VLDL CHOLESTEROL 11.8 MG/DL
[2021-02-23] MEDS: DILTIAZEM 30 MG TABLET PO SCH ×3 (08:30→22:04)
[2021-02-23] MEDS: ASPIRIN CHEW 81 MG TABLET PO SCH (08:30)
[2021-02-23] MEDS: carvediloL 12.5 MG TABLET PEG SCH ×2 (08:30→22:04)
[2021-02-23] MEDS: VENLAFAXINE 75 MG TABLET PEG SCH (08:30)
[2021-02-23] MEDS ORDERED: CLOPIDOGREL 75 MG TABLET PEG SCH (09:00)
[2021-02-23] MEDS: VANCOMYCIN INJ 1,000 MG in SODIUM CHLORIDE 0.9% 250 ML IV SCH (16:47)
[2021-02-23] MEDS: ENOXAPARIN 40 MG/0.4 ML SYRINGE SUBCUT SCH (16:47)
[2021-02-23] MEDS: DONEPEZIL 10 MG TABLET PEG SCH (20:20)
[2021-02-24] MEDS: MEROPENEM 500 MG in SODIUM CHLORIDE 0.9% 100 ML IV SCH ×3 (01:57→14:26)
[2021-02-24 05:50] LABS: Basophils % 0.1 % (0.0-0.8); Eosinophils % 0.1 % (0.00-10.9); Hematocrit 28.8 VOL% (42.0-52.0); Hemoglobin 9.6 GM/DL (14.0-18.0); Immature Granulocytes % 0.5 %; Immature Granulocytes Absolute 0.06 #; Lymphocytes # 1.7 10*3/uL (1.4-4.0); Lymphocytes % 14.1 % (21.2-54.2); Mean Corpuscular HGB Conc 33.3 GM/DL (32-36); Mean Corpuscular Volume 98.6 FL (87-102); Mean Platelet Volume 9.2 FL (9.6-12.0); Neutrophils % 79.2 % (38.7-73.9); Platelet Count 372 T/CUMM (130-400); Red Blood Count 2.92 MC/CUMM (3.8-5.5); Red Cell Distribution Width 14.7 % (9.3-17.3); White Blood Count 11.7 T/CUMM (4-12)
[2021-02-24 06:12] LABS: Albumin 1.7 G/DL (3.4-5.0); Calcium 8.4 MG/DL (8.5-10.1); Osmolality,Calculated 272.2 MOS/KG (273-304); Total Protein 7.2 G/DL (6.4-8.2)
[2021-02-24 06:19] LABS: Potassium 3.3 MMOL/L (3.5-5.1)
[2021-02-24] MEDS: ASPIRIN CHEW 81 MG TABLET PO SCH (08:46)
[2021-02-24] MEDS: POTASSIUM PHOS/SOD PHOS 250 MG TABLET PO SCH ×2 (08:46→11:59)
[2021-02-24] MEDS: carvediloL 12.5 MG TABLET PEG SCH (08:46)
[2021-02-24] MEDS: VENLAFAXINE 75 MG TABLET PEG SCH (08:46)
[2021-02-24] MEDS: DILTIAZEM 30 MG TABLET PO SCH ×2 (08:47→14:26)
[2021-02-24] MEDS: ENOXAPARIN 40 MG/0.4 ML SYRINGE SUBCUT SCH (14:27)
[2021-02-24] MEDS: VANCOMYCIN INJ 1,000 MG in SODIUM CHLORIDE 0.9% 250 ML IV SCH (14:27)
[2021-02-24 15:33] VITALS: BP 115/73
== END 2021-02-24 15:55 | DRG 724 ==
LOC: EDBD → EDUNIT# → N.ED 10:10 → SUATTDRO 13:14 → N.EDINP 13:14 → N.5E 14:26
PROVIDERS: ADMIT Internal Medicine; ATTEND Internal Medicine